=== PATIENT | female | born 1985 | race Two or more races ===

== ENCOUNTER 2017-03-14 12:03 | Emergency (ER) | payer BC ==
[~2017-03-14] VITALS: Ht 160 cm; Wt 86.2 kg
[2017-03-14 12:09] VITALS: BP 114/62
--- NOTE | 2017-03-14 12:20 | PHYS DOC ---
Past Medical History Past Medical History: No Pertinent History Past Surgical History: No Surgical History Alcohol Use: None Drug Use: None Adult General Chief Complaint Chief Complaint: EYE PROBLEMS HPI HPI Patient is a 32 year old female who presents the ED complaining of right eyelid swelling since waking up this morning. Patient states she fell sleep in her makeup yesterday and woke up with right eye swelling. Denies pain. States she thinks she had an allergic reaction to leaving her make up on. Symptoms improved with ice. Denies trauma, warmth, fever, nausea/vomiting, vision changes , eye pain, headache, chest pain or shortness of breath. Review of Systems Review of Systems Constitutional: Denies fever or chills [] Eyes: Denies change in visual acuity, redness, or eye pain [] HENT: Denies nasal congestion or sore throat [] Respiratory: Denies cough or shortness of breath [] Cardiovascular: No additional information not addressed in HPI [] GI: Denies abdominal pain, nausea, vomiting, bloody stools or diarrhea [] : Denies dysuria or hematuria [] Musculoskeletal: Denies back pain or joint pain [] Integument: Denies rash or skin lesions [] Neurologic: Denies headache, focal weakness or sensory changes [] Endocrine: Denies polyuria or polydipsia [] Allergies Allergies Allergies Coded Allergies Type Severity Reaction Last Updated Verified No Known Drug Allergies 03/14/17 No Physical Exam Physical Exam Constitutional: Well developed, well nourished, no acute distress, non-toxic appearance. [] HENT: Normocephalic, atraumatic, bilateral external ears normal, oropharynx moist, no oral exudates, nose normal. [] Eyes: PERRLA, EOMI, conjunctiva normal, no discharge. Normal visual acuity. MILD RIGHT UPPER EYELID SWELLING. NO ERYTHEMA, WARMTH OR SIGNS OF ORBITAL CELLULITIS. [] Neck: Normal range of motion, no tenderness, supple, no stridor. [] Cardiovascular:Heart rate regular rhythm, no murmur [] Lungs & Thorax: Bilateral breath sounds clear to auscultation [] Abdomen: Bowel sounds normal, soft, no tenderness, no masses, no pulsatile masses. [] Skin: Warm, dry, no erythema, no rash. [] Back: No tenderness, no CVA tenderness. [] Extremities: No tenderness, no cyanosis, no clubbing, ROM intact, no edema. [] Neurologic: Alert and oriented X 3, normal motor function, normal sensory function, no focal deficits noted. [] Psychologic: Affect normal, judgement normal, mood normal. [] Current Patient Data Vital Signs Vital Signs Date Time Temp Pulse Resp B/P (MAP) Pulse Ox O2 Delivery O2 Flow Rate FiO2 03/14/17 12:09 98.0 60 18 98 Room Air 98.0 EKG EKG [] Radiology/Procedures Radiology/Procedures [] Course & Med Decision Making Course & Med Decision Making Pertinent Labs and Imaging studies reviewed. (See chart for details) []History and exam consistent with allergic reaction. No difficulty swallowing, breathing, shortness of breath or lip swelling. Will treat with Benadryl and prednisone (patient states prednisone improved her previous allergic reaction) outpatient. Discussed symptomatic treatment. Discussed reasons to return to the ED. Patient understands and agrees with plan. Dragon Disclaimer Dragon Disclaimer This electronic medical record was generated, in whole or in part, using a voice recognition dictation system. Departure Departure Impression: Primary Impression: Allergic reaction Disposition: 01 HOME, SELF-CARE Condition: STABLE Referrals: MIRNA CLINTON MD Patient Instructions: Allergies, Generic Scripts Diphenhydramine Hcl (BENADRYL) 25 Mg Capsule 1 CAP PO Q6HRS, #10 CAP 1 Refill Prov: GREG NEVILLE 03/14/17 Methylprednisolone (MEDROL) 4 Mg Tab.ds.pk 1 PKG PO UD, #1 PKG Prov: GREG NEVILLE 03/14/17 GREG NEVILLE Mar 14, 2017 12:20
[2017-03-14] MEDS ORDERED: METH4TAB2 PO (12:22)
[2017-03-14] MEDS ORDERED: DIPH25CA58 PO (12:22)
== END 2017-03-14 12:32 | disposition home or self-care (01) ==
LOC: ER 12:03
DX: R22.0 Localized swelling, mass and lump, head (principal); H57.8 Other specified disorders of eye and adnexa; T49.8X5A Adverse effect of other topical agents, initial encounter; Y92.89 Other specified places as the place of occurrence of the external cause
CPT/HCPCS: 99283

== ENCOUNTER 2017-06-08 11:38 | Emergency (ER) | payer OTHER, BC | END 2017-06-08 12:06 | disposition home or self-care (01) | LOC: ER 11:38 | DX: S29.012A Strain of muscle and tendon of back wall of thorax, initial encounter (principal); M25.512 Pain in left shoulder; V43.52XA Car driver injured in collision with other type car in traffic accident, initial encounter; Y93.I9 Activity, other involving external motion; Y92.410 Unspecified street and highway as the place of occurrence of the external cause; Y99.8 Other external cause status | CPT/HCPCS: 99283 ==

== ENCOUNTER 2017-12-09 23:17 | Emergency (ER) | payer SELFPAY ==
[2017-12-09 23:51] LABS: URINE HCG POC HCG NEGATIVE (Negative)
[2017-12-09 23:54] LABS: BILIRUBIN,URINE NEGATIVE (NEG); CLARITY,URINE CLOUDY; COLOR,URINE YELLOW; GLUCOSE,URINE NEGATIVE (NEG); NITRITE,URINE NEGATIVE (NEG); PH,URINE 5.5; PROTEIN,URINE NEGATIVE (NEG-TRACE); UROBILINOGEN,URINE 0.2 mg/dL (0.2 mg/dL)
[2017-12-10 00:01] LABS: BACTERIA,URINE MANY /HPF (0-FEW); RBC,URINE RARE /HPF (0-2); SQUAMOUS EPITHELIAL CELL,UR MANY /LPF
[2017-12-10 00:12] LABS: ADD MAN DIFF? NO
[2017-12-10 00:17] LABS: BASO # 0.1 x10^3/uL (0.0-0.2); BASO % 2 % (0-3); EOS # 0.3 x10^3/uL (0.0-0.7); EOS % 6 % (0-3); HEMATOCRIT 31.2 % (36.0-47.0); HEMOGLOBIN 10.3 g/dL (12.0-15.5); LYMPH # 1.7 x10^3/uL (1.0-4.8); LYMPH % 37 % (24-48); MEAN CORPUSCULAR HEMOGLOBIN 25 pg (25-35); MEAN CORPUSCULAR HGB CONC 33 g/dL (31-37); MEAN CORPUSCULAR VOLUME 75 fL (79-100); MONO # 0.4 x10^3/uL (0.0-1.1); MONO % 8 % (0-9); NEUT # 2.1 x10^3uL (1.8-7.7); NEUT % 46 % (31-73); PLATELET COUNT 327 x10^3/uL (140-400); RED BLOOD COUNT 4.15 x10^6/uL (3.50-5.40); WHITE BLOOD COUNT 4.6 x10^3/uL (4.0-11.0)
[2017-12-10 00:26] LABS: ANION GAP 10 (6-14); BLOOD UREA NITROGEN 13 mg/dL (7-20); BUN/CREATININE RATIO 14 (6-20); CALCIUM 8.7 mg/dL (8.5-10.1); CARBON DIOXIDE 27 mmol/L (21-32); CHLORIDE 106 mmol/L (98-107); CREATININE 0.9 mg/dL (0.6-1.0); GFR 72.6; GLUCOSE 90 mg/dL (70-99); POTASSIUM 3.9 mmol/L (3.5-5.1); SODIUM 143 mmol/L (136-145)
[2017-12-10 00:32] LABS: ALBUMIN 3.4 g/dL (3.4-5.0); ALBUMIN/GLOBULIN RATIO 0.9 (1.0-1.7); ALK PHOS 70 U/L (46-116); ALT (SGPT) 16 U/L (14-59); AST (SGOT) 17 U/L (15-37); LIPASE 252 U/L (73-393); TOTAL BILIRUBIN 0.4 mg/dL (0.2-1.0); TOTAL PROTEIN 7.4 g/dL (6.4-8.2)
[2017-12-10] MEDS: IOHEXOL 300 MG/ML 100ML VIAL. IV (02:06)
[2017-12-10] MEDS ORDERED: CONTRAST GIVEN. MC (02:15)
[2017-12-10 04:28] LABS: ANISOCYTOSIS MOD; HYPOCHROMIA SLIGHT; PLT ESTIMATE ADEQUATE (ADEQUATE); POLYCHROMASIA SLIGHT
== END 2017-12-10 03:30 | disposition home or self-care (01) ==
LOC: ER 23:17
DX: R60.0 Localized edema (principal); M54.9 Dorsalgia, unspecified; E03.9 Hypothyroidism, unspecified
CPT/HCPCS: 36415; 74177; 80053; 81001; 81025; 83690; 84702; 85025; 87086; 99285-25; Q9967

== ENCOUNTER 2018-01-08 16:46 | Emergency (ER) | payer BC, OTHER ==
[2018-01-08] MEDS: ONDANSETRON PF 4 MG/2 ML VIAL. IV (18:03)
[2018-01-08] MEDS: IV NORMAL SALINE 1000ML BAG 1,000 ML IV (18:04)
[2018-01-08] MEDS: fentaNYL PF VIAL 100 MCG/2 ML VIAL IV (18:04)
[2018-01-08 18:08] LABS: ADD MAN DIFF? NO
[2018-01-08 18:10] LABS: BASO # 0.1 x10^3/uL (0.0-0.2); BASO % 1 % (0-3); EOS # 0.1 x10^3/uL (0.0-0.7); EOS % 1 % (0-3); LYMPH # 0.9 x10^3/uL (1.0-4.8); LYMPH % 10 % (24-48); MEAN CORPUSCULAR HEMOGLOBIN 26 pg (25-35); MEAN CORPUSCULAR HGB CONC 33 g/dL (31-37); MEAN CORPUSCULAR VOLUME 79 fL (79-100); MONO # 0.4 x10^3/uL (0.0-1.1); MONO % 5 % (0-9); NEUT # 6.9 x10^3uL (1.8-7.7); NEUT % 83 % (31-73); PLATELET COUNT 252 x10^3/uL (140-400); RED BLOOD COUNT 4.71 x10^6/uL (3.50-5.40); RED CELL DISTRIBUTION WIDTH 22.3 % (11.5-14.5); WHITE BLOOD COUNT 8.3 x10^3/uL (4.0-11.0)
[2018-01-08 18:18] LABS: ANION GAP 9 (6-14); BLOOD UREA NITROGEN 11 mg/dL (7-20); BUN/CREATININE RATIO 14 (6-20); CALCIUM 8.8 mg/dL (8.5-10.1); CARBON DIOXIDE 27 mmol/L (21-32); CHLORIDE 105 mmol/L (98-107); CREATININE 0.8 mg/dL (0.6-1.0); GFR 83.1; GLUCOSE 98 mg/dL (70-99); POTASSIUM 3.5 mmol/L (3.5-5.1); SODIUM 141 mmol/L (136-145)
[2018-01-08 18:24] LABS: ALBUMIN 3.5 g/dL (3.4-5.0); ALBUMIN/GLOBULIN RATIO 0.8 (1.0-1.7); ALK PHOS 79 U/L (46-116); ALT (SGPT) 20 U/L (14-59); AST (SGOT) 24 U/L (15-37); LIPASE 174 U/L (73-393); TOTAL BILIRUBIN 0.5 mg/dL (0.2-1.0); TOTAL PROTEIN 7.7 g/dL (6.4-8.2)
[2018-01-08 18:40] LABS: ANISOCYTOSIS MOD; PLT ESTIMATE ADEQUATE (ADEQUATE)
[2018-01-08] MEDS: HYDROcodone/APAP 5/325MG 1 TAB TABLET PO (20:46)
== END 2018-01-08 20:50 | disposition home or self-care (01) ==
LOC: ER 16:46
DX: K80.20 Calculus of gallbladder without cholecystitis without obstruction (principal); E03.9 Hypothyroidism, unspecified
CPT/HCPCS: 36415; 76705; 80053; 83690; 85025; 96374; 96375; 99285-25; J2405; J3010; J7030

== ENCOUNTER 2018-05-09 23:23 | Emergency (ER) | payer BC ==
[~2018-05-09] VITALS: Ht 165.1 cm; Wt 81.6 kg
[~2018-05-09 23:23] MED LIST: CEPH500C PO; CYCL10TA2 PO; DIPH25CA58 PO; HYDR-3164 PO; METH4TAB2 PO; METR500T PO; NAPR-683 PO; TRAM-48 PO
[2018-05-09 23:40] VITALS: BP 124/85
[2018-05-09 23:40] LABS: BILIRUBIN,URINE NEGATIVE (NEG); CLARITY,URINE CLOUDY; COLOR,URINE YELLOW; NITRITE,URINE POSITIVE (NEG); PROTEIN,URINE 100 mg/dL (NEG-TRACE)
[2018-05-09 23:48] LABS: BACTERIA,URINE MANY /HPF (0-FEW); RBC,URINE TNTC /HPF (0-2); SQUAMOUS EPITHELIAL CELL,UR OCC /LPF; WBC,URINE TNTC /HPF (0-4)
[2018-05-09] MEDS ORDERED: SULF1TAB24 PO (23:57)
[2018-05-09] MEDS ORDERED: PHEN100T82 PO (23:57)
--- NOTE | 2018-05-09 23:59 | PHYS DOC ---
Past Medical History Past Medical History: No Pertinent History, Hypothyroid Past Surgical History: No Surgical History Alcohol Use: None Drug Use: None Adult General Chief Complaint Chief Complaint: BLOOD IN URINE HPI [facility] Patient is a 33 year old F who presents with dysuria, frequency and urgency since last night. No fever, chills, n/v. Review of Systems Review of Systems Constitutional: Denies fever or chills [] Respiratory: Denies cough or shortness of breath [] Cardiovascular: No additional information not addressed in HPI [] GI: Denies abdominal pain, nausea, vomiting : Reports dysuria, frequency, urgency Musculoskeletal: Denies back pain or joint pain [] Integument: Denies rash or skin lesions [] Neurologic: Denies headache, focal weakness or sensory changes [] All other systems were reviewed and found to be within normal limits, except as documented in this note. Current Medications Current Medications Current Medications Medications (Trade) Dose Ordered Sig/Lucía Start Time Stop Time Status Last Admin Dose Admin Phenazopyridine HCl (Pyridium) 200 mg 1X ONCE 05/10/18 00:15 05/10/18 00:16 DC 05/10/18 00:15 200 MG Trimethoprim/ Sulfamethoxazole (Bactrim Ds) 1 tab 1X ONCE 05/10/18 00:15 05/10/18 00:16 DC 05/10/18 00:15 1 TAB Allergies Allergies Allergies Coded Allergies Type Severity Reaction Last Updated Verified No Known Drug Allergies 03/14/17 No Physical Exam Physical Exam Constitutional: Well developed, well nourished, no acute distress, non-toxic appearance. [] HENT: Normocephalic, atraumatic Eyes: PERRLA, EOMI, conjunctiva normal, no discharge. [] Neck: Normal range of motion, no tenderness, supple, no stridor. [] Cardiovascular:Heart rate regular rhythm, no murmur [] Lungs & Thorax: Bilateral breath sounds clear to auscultation [] Skin: Warm, dry, no erythema, no rash. [] Back: No tenderness, no CVA tenderness. [] Extremities: No tenderness, no cyanosis, no clubbing, ROM intact, no edema. [] Neurologic: Alert and oriented X 3, normal motor function, normal sensory function, no focal deficits noted. [] Psychologic: Affect normal, judgement normal, mood normal. [] Current Patient Data Vital Signs Vital Signs Date Time Temp Pulse Resp B/P (MAP) Pulse Ox O2 Delivery O2 Flow Rate FiO2 05/09/18 23:40 98.0 81 18 124/85 (98) 97 Room Air 98.0 Lab Values Laboratory Tests Test 05/09/18 23:30 05/09/18 23:34 Urine Collection Type Void Urine Color Yellow Urine Clarity Cloudy Urine pH 7.0 Urine Specific [place] 1.020 Urine Protein 100 mg/dL (NEG-TRACE) Urine Glucose (UA) Negative mg/dL (NEG) Urine Ketones (Stick) Negative mg/dL (NEG) Urine Blood Large (NEG) Urine Nitrite Positive (NEG) Urine Bilirubin Negative (NEG) Urine Urobilinogen Dipstick 1.0 mg/dL (0.2 mg/dL) Urine Leukocyte Esterase Large (NEG) Urine RBC Tntc /HPF (0-2) Urine WBC Tntc /HPF (0-4) Urine Squamous Epithelial Cells Occ /LPF Urine Bacteria Many /HPF (0-FEW) POC Urine HCG, Qualitative Hcg negative (Negative) EKG EKG [] Radiology/Procedures Radiology/Procedures [] Course & Med Decision Making Course & Med Decision Making Pertinent Labs and Imaging studies reviewed. (See chart for details) Plan: bactrim rx, pyridium rx, f/u with PCP, return precautions reviewed Chava Disclaimer Chava Disclaimer This electronic medical record was generated, in whole or in part, using a voice recognition dictation system. Departure Departure Impression: Primary Impression: UTI (urinary tract infection) Disposition: 01 HOME, SELF-CARE Condition: GOOD Referrals: NO PCP (PCP) Patient Instructions: Urinary Tract Infection Scripts Phenazopyridine Hcl (PYRIDIUM) 100 Mg Tablet 100 MG PO TID, #9 TAB Prov: ЕЛЕНА ROBLES APRN 05/09/18 Sulfamethoxazole/Trimethoprim (BACTRIM DS TABLET) 1 Each Tablet 1 TAB PO BID, #14 TAB Prov: ЕЛЕНА ROBLES APRN 05/09/18 Attending Signature Attending Signature I have participated in the care of this patient and I have reviewed and agree with all pertinent clinical information above including history, exam, and recommendations. Problem Qualifiers Primary Impression: UTI (urinary tract infection) Urinary tract infection type: acute cystitis Hematuria presence: without hematuria Qualified Codes: N30.00 - Acute cystitis without hematuria ЕЛЕНА ROBLES APRN May 09, 2018 23:59 MIRNA MIN DO May 10, 2018 01:22
[2018-05-10] MEDS ORDERED: SMZ/TMP 800/160MG TABLET. PO ONE (00:15)
[2018-05-10] MEDS ORDERED: PHENAZOPYRIDINE 200 MG TABLET. PO ONE (00:15)
== END 2018-05-10 00:16 | disposition home or self-care (01) ==
LOC: ER 23:23
DX: N30.00 Acute cystitis without hematuria (principal); E03.9 Hypothyroidism, unspecified
CPT/HCPCS: 81001; 81025; 87086; 99283

== ENCOUNTER 2018-07-30 15:51 | Emergency (ER) | payer BC ==
[~2018-07-30] VITALS: Ht 160 cm; Wt 81.6 kg
[~2018-07-30 15:51] MED LIST changes: +PHEN100T82 PO; +SULF1TAB24 PO
[2018-07-30 16:05] VITALS: BP 155/104
--- NOTE | 2018-07-30 16:29 | PHYS DOC ---
Past Medical History Past Medical History: Hypothyroid Past Surgical History: No Surgical History Alcohol Use: None Drug Use: None Adult General Chief Complaint Chief Complaint: PAIN ON URINATION HPI HPI Patient is a 33 year old female who presents with pain with urination that started yesterday. It has been getting worse over time. There is urgency as well as frequency wall urinating small amounts. No fever. No back pain. No flank pain. She has noted blood in the urine today. She had similar symptoms approximately 3 months ago with another urinary tract infection.[] Review of Systems Review of Systems Constitutional: Denies fever or chills [] Eyes: Denies change in visual acuity, redness, or eye pain [] HENT: Denies nasal congestion or sore throat [] Respiratory: Denies cough or shortness of breath [] Cardiovascular: No chest Pain or palpitations [] GI: Denies abdominal pain, nausea, vomiting, bloody stools or diarrhea [] : See history of present illness[] Musculoskeletal: Denies back pain or joint pain [] Integument: Denies rash or skin lesions [] Neurologic: Denies headache, focal weakness or sensory changes [] Endocrine: Denies polydipsia [] All other systems were reviewed and found to be within normal limits, except as documented in this note. Allergies Allergies Allergies Coded Allergies Type Severity Reaction Last Updated Verified No Known Drug Allergies 03/14/17 No Physical Exam Physical Exam Constitutional: Well developed, well nourished, no acute distress, non-toxic appearance. [] HENT: Normocephalic, atraumatic, bilateral external ears normal, oropharynx moist, no oral exudates, nose normal. [] Eyes: PERRLA, EOMI, conjunctiva normal, no discharge. [] Neck: Normal range of motion, no tenderness, supple, no stridor. [] Cardiovascular:Heart rate regular rhythm, no murmur [] Lungs & Thorax: Bilateral breath sounds clear to auscultation [] Abdomen: Bowel sounds normal, soft, no tenderness, no masses, no pulsatile masses. [] Skin: Warm, dry, no erythema, no rash. [] Back: No tenderness, no CVA tenderness. [] Extremities: No tenderness, no cyanosis, no clubbing, ROM intact, no edema. [] Neurologic: Alert and oriented X 3, normal motor function, normal sensory function, no focal deficits noted. [] Psychologic: Affect normal, judgement normal, mood normal. [] Current Patient Data Vital Signs Vital Signs Date Time Temp Pulse Resp B/P (MAP) Pulse Ox O2 Delivery O2 Flow Rate FiO2 07/30/18 16:05 98.0 155 18 155/104 (121) 100 Room Air 98.0 Lab Values Laboratory Tests Test 07/30/18 16:00 07/30/18 16:31 Urine Collection Type Unknown Urine Color Red Urine Clarity Turbid Urine pH 5.5 Urine Specific [place] 1.025 Urine Protein >=300 mg/dL (NEG-TRACE) Urine Glucose (UA) Negative mg/dL (NEG) Urine Ketones (Stick) 15 mg/dL (NEG) Urine Blood Large (NEG) Urine Nitrite Negative (NEG) Urine Bilirubin Moderate (NEG) Urine Urobilinogen Dipstick 1.0 mg/dL (0.2 mg/dL) Urine Leukocyte Esterase Large (NEG) Urine RBC Tntc /HPF (0-2) Urine WBC Tntc /HPF (0-4) Urine Squamous Epithelial Cells Few /LPF Urine Bacteria 0 /HPF (0-FEW) Urine Mucus Mod /LPF POC Urine HCG, Qualitative Hcg negative (Negative) EKG EKG [] Radiology/Procedures Radiology/Procedures [] Course & Med Decision Making Course & Med Decision Making Pertinent Labs and Imaging studies reviewed. (See chart for details) ED course: Patient arrived, was placed in bed, tolerated exam well. After return lab findings these were discussed with the patient who voiced understanding. All questions were answered. Patient was discharged in improved condition. Medical decision making: There is no evidence of pyelonephritis nor systemic toxicity. We will cover her as an outpatient for urinary tract infection.[] Dragon Disclaimer Dragon Disclaimer This electronic medical record was generated, in whole or in part, using a voice recognition dictation system. Departure Departure Impression: Primary Impression: Urinary tract infection Disposition: HOME, SELF-CARE Condition: IMPROVED Referrals: NO PCP (PCP) Patient Instructions: Urinary Tract Infection Additional Instructions: Drink plenty of fluids. Follow-up with your regular doctor in 2 days. If you do not have a regular doctor a list of local clinics will be provided for you. Turn to the ER if worsening pain or any other concerns. Scripts Phenazopyridine Hcl (PYRIDIUM) 200 Mg Tablet 200 MG PO TID for 2 Days, #6 TAB Prov: KELVIN COLLINS DO 07/30/18 Cephalexin (CEPHALEXIN) 500 Mg Tablet 1 TAB PO TID, #30 TAB Prov: KELVIN COLLINS DO 07/30/18 Problem Qualifiers Primary Impression: Urinary tract infection Urinary tract infection type: acute cystitis Hematuria presence: with hematuria Qualified Codes: N30.01 - Acute cystitis with hematuria KELVIN COLLINS DO Jul 30, 2018 16:29
[2018-07-30 16:35] LABS: BILIRUBIN,URINE MODERATE (NEG); CLARITY,URINE TURBID; COLOR,URINE RED; NITRITE,URINE NEGATIVE (NEG); PH,URINE 5.5; PROTEIN,URINE >=300 mg/dL (NEG-TRACE)
[2018-07-30 16:45] LABS: BACTERIA,URINE 0 /HPF (0-FEW); RBC,URINE TNTC /HPF (0-2); SQUAMOUS EPITHELIAL CELL,UR FEW /LPF; WBC,URINE TNTC /HPF (0-4)
[2018-07-30] MEDS ORDERED: CEPH500T PO (17:03)
[2018-07-30] MEDS ORDERED: PHEN-318 PO (17:03)
== END 2018-07-30 17:05 | disposition home or self-care (01) ==
LOC: ER 15:51
DX: N30.01 Acute cystitis with hematuria (principal); E03.9 Hypothyroidism, unspecified
CPT/HCPCS: 81001; 81025; 87086; 99283

== ENCOUNTER 2019-03-12 19:41 | Emergency (ER) | payer BC ==
[~2019-03-12] VITALS: Ht 157.5 cm; Wt 77.6 kg
[~2019-03-12 19:41] MED LIST changes: +CEPH500T PO; +PHEN-318 PO
[2019-03-12 19:42] VITALS: BP 140/75
[2019-03-12 21:08] LABS: BASO # 0.1 x10^3/uL (0.0-0.2); BASO % 1 % (0-3); EOS # 0.1 x10^3/uL (0.0-0.7); EOS % 2 % (0-3); HEMATOCRIT 37.6 % (36.0-47.0); HEMOGLOBIN 12.7 g/dL (12.0-15.5); LYMPH # 1.6 x10^3/uL (1.0-4.8); LYMPH % 26 % (24-48); MEAN CORPUSCULAR HEMOGLOBIN 28 pg (25-35); MEAN CORPUSCULAR HGB CONC 34 g/dL (31-37); MEAN CORPUSCULAR VOLUME 82 fL (79-100); MONO # 0.4 x10^3/uL (0.0-1.1); MONO % 7 % (0-9); NEUT % 64 % (31-73); PLATELET COUNT 219 x10^3/uL (140-400); RED BLOOD COUNT 4.56 x10^6/uL (3.50-5.40); RED CELL DISTRIBUTION WIDTH 15.1 % (11.5-14.5); WHITE BLOOD COUNT 6.2 x10^3/uL (4.0-11.0)
[2019-03-12 21:09] LABS: BILIRUBIN,URINE NEGATIVE (NEG); CLARITY,URINE CLEAR; COLOR,URINE YELLOW; NITRITE,URINE NEGATIVE (NEG); PROTEIN,URINE NEGATIVE (NEG-TRACE); UROBILINOGEN,URINE 0.2 mg/dL (0.2 mg/dL)
[2019-03-12 21:14] LABS: CALCIUM 8.8 mg/dL (8.5-10.1); CREATININE 0.6 mg/dL (0.6-1.0); GFR 114.4; POTASSIUM 3.6 mmol/L (3.5-5.1)
[2019-03-12 21:19] LABS: BACTERIA,URINE MODERATE /HPF (0-FEW); SQUAMOUS EPITHELIAL CELL,UR MOD /LPF
[2019-03-12 21:21] LABS: ALBUMIN 3.6 g/dL (3.4-5.0); ALBUMIN/GLOBULIN RATIO 0.9 (1.0-1.7); TOTAL BILIRUBIN 0.3 mg/dL (0.2-1.0); TOTAL PROTEIN 7.5 g/dL (6.4-8.2)
--- NOTE | 2019-03-12 22:56 | RAD ---
Transvaginal OB ultrasound HISTORY: and spotting Transvaginal sonographic examination of the was performed and multiple static images were obtained. The uterus appears homogeneous. There is no gestational sac seen. There is no free fluid. The endometrium appears images measures 2.0 cm in thickness. The ovaries appear normal normal blood flow. IMPRESSION: No seen. This could be an early or blighted ovum or miscarriage. Recommend correlation serial quantitative beta-hCG. If the continues a short-term follow-up ultrasound should be performed in order to document a live intrauterine once the patient is 6 weeks . Electronically signed by: Ulices Rivero III, MD (03/12/2019 10:53 PM) [facility]
--- NOTE | 2019-03-12 23:56 | PHYS DOC ---
Past Medical History Past Medical History: No Pertinent History, Hypothyroid (KIEL KELLEY APRN) Past Surgical History: No Surgical History (KEIL KELLEY APRN) Alcohol Use: None Drug Use: None (KIEL KELLEY APRN) Adult General Chief Complaint Chief Complaint: VAGINAL BLEEDING [facility] HPI Patient is a 34 year old female 5 para 3, 1 miscarriage who presents to the ED today complaining of vaginal bleeding in that began yesterday. Patient states she is only spotting when she wiped herself. She states she does not have any abdominal pain. Denies any nausea vomiting. She believes she is 6 weeks . She states her last menstrual cycle might have been February 28, 2019. (KIEL KELLEY APRN) Review of Systems Review of Systems Constitutional: Denies fever or chills [] Eyes: Denies change in visual acuity, redness, or eye pain [] HENT: Denies nasal congestion or sore throat [] Respiratory: Denies cough or shortness of breath [] Cardiovascular: No additional information not addressed in HPI [] GI: Reports vaginal bleeding in . Denies abdominal pain, nausea, vomiting, bloody stools or diarrhea [] : Denies dysuria or hematuria [] Musculoskeletal: Denies back pain or joint pain [] Integument: Denies rash or skin lesions [] Neurologic: Denies headache, focal weakness or sensory changes [] All other systems were reviewed and found to be within normal limits, except as documented in this note. (KIEL KELLEY APRN) Allergies Allergies Allergies Coded Allergies Type Severity Reaction Last Updated Verified No Known Drug Allergies 03/14/17 No (ONOFRE AARON MD) Physical Exam Physical Exam Constitutional: Well developed, well nourished, no acute distress, non-toxic appearance. [] HENT: Normocephalic, atraumatic, bilateral external ears normal, oropharynx moist, no oral exudates, nose normal. [] Eyes: PERRLA, EOMI, conjunctiva normal, no discharge. [] Neck: Normal range of motion, no tenderness, supple, no stridor. [] Cardiovascular:Heart rate regular rhythm, no murmur [] Lungs & Thorax: Bilateral breath sounds clear to auscultation [] Abdomen: Bowel sounds normal, soft, no tenderness, no masses, no pulsatile masses. [] Pelvic exam External pelvic appears normal, cervix incision loss, closed, no CMT, no adnexal tenderness. Trace amount of spotting/brownish discharge in the vaginal vault. Skin: Warm, dry, no erythema, no rash. [] Back: No tenderness, no CVA tenderness. [] Extremities: No tenderness, no cyanosis, no clubbing, ROM intact, no edema. [] Neurologic: Alert and oriented X 3, normal motor function, normal sensory function, no focal deficits noted. [] Psychologic: Affect normal, judgement normal, mood normal. [] (KIEL KELLEY APRN) Current Patient Data Vital Signs Vital Signs Date Time Temp Pulse Resp B/P (MAP) Pulse Ox O2 Delivery O2 Flow Rate FiO2 03/12/19 19:42 97.5 89 14 140/75 (96) 100 Room Air 97.5 (ONOFRE AARON MD) Lab Values Laboratory Tests Test 03/12/19 21:00 White Blood Count 6.2 x10^3/uL (4.0-11.0) Red Blood Count 4.56 x10^6/uL (3.50-5.40) Hemoglobin 12.7 g/dL (12.0-15.5) Hematocrit 37.6 % (36.0-47.0) Mean Corpuscular Volume 82 fL (79-100) Mean Corpuscular Hemoglobin 28 pg (25-35) Mean Corpuscular Hemoglobin Concent 34 g/dL (31-37) Red Cell Distribution Width 15.1 % (11.5-14.5) H Platelet Count 219 x10^3/uL (140-400) Neutrophils (%) (Auto) 64 % (31-73) Lymphocytes (%) (Auto) 26 % (24-48) Monocytes (%) (Auto) 7 % (0-9) Eosinophils (%) (Auto) 2 % (0-3) Basophils (%) (Auto) 1 % (0-3) Neutrophils # (Auto) 4.0 x10^3/uL (1.8-7.7) Lymphocytes # (Auto) 1.6 x10^3/uL (1.0-4.8) Monocytes # (Auto) 0.4 x10^3/uL (0.0-1.1) Eosinophils # (Auto) 0.1 x10^3/uL (0.0-0.7) Basophils # (Auto) 0.1 x10^3/uL (0.0-0.2) Urine Collection Type Unknown Urine Color Yellow Urine Clarity Clear Urine pH 6.0 Urine Specific [place] 1.015 Urine Protein Negative mg/dL (NEG-TRACE) Urine Glucose (UA) Negative mg/dL (NEG) Urine Ketones (Stick) Negative mg/dL (NEG) Urine Blood Negative (NEG) Urine Nitrite Negative (NEG) Urine Bilirubin Negative (NEG) Urine Urobilinogen Dipstick 0.2 mg/dL (0.2 mg/dL) Urine Leukocyte Esterase Negative (NEG) Urine RBC 1-2 /HPF (0-2) Urine WBC 1-4 /HPF (0-4) Urine Squamous Epithelial Cells Mod /LPF Urine Bacteria Moderate /HPF (0-FEW) POC Urine HCG, Qualitative Hcg positive (Negative) Maternal Serum HCG Beta Subunit 127 mIU/mL (0-5) H Sodium Level 142 mmol/L (136-145) Potassium Level 3.6 mmol/L (3.5-5.1) Chloride Level 106 mmol/L (98-107) Carbon Dioxide Level 28 mmol/L (21-32) Anion Gap 8 (6-14) Blood Urea Nitrogen 10 mg/dL (7-20) Creatinine 0.6 mg/dL (0.6-1.0) Estimated GFR (Cockcroft-Gault) 114.4 BUN/Creatinine Ratio 17 (6-20) Glucose Level 106 mg/dL (70-99) H Calcium Level 8.8 mg/dL (8.5-10.1) Total Bilirubin 0.3 mg/dL (0.2-1.0) Aspartate Amino Transferase (AST) 23 U/L (15-37) Alanine Aminotransferase (ALT) 32 U/L (14-59) Alkaline Phosphatase 81 U/L (46-116) Total Protein 7.5 g/dL (6.4-8.2) Albumin 3.6 g/dL (3.4-5.0) Albumin/Globulin Ratio 0.9 (1.0-1.7) L Laboratory Tests 03/12/19 21:00 Laboratory Tests 03/12/19 21:00 Microbiology 03/12/19 Wet Prep - Final, Complete (ONOFRE AARON MD) EKG EKG [] (KIEL KELLEY APRN) Radiology/Procedures Radiology/Procedures []PROCEDURE: OB TRANSVAG Transvaginal OB ultrasound HISTORY: and spotting Transvaginal sonographic examination of the was performed and multiple static images were obtained. The uterus appears homogeneous. There is no gestational sac seen. There is no free fluid. The endometrium appears images measures 2.0 cm in thickness. The ovaries appear normal normal blood flow. IMPRESSION: No seen. This could be an early or blighted ovum or miscarriage. Recommend correlation serial quantitative beta-hCG. If the continues a short-term follow-up ultrasound should be performed in order to document a live intrauterine once the patient is 6 weeks . Electronically signed by: Katie Lei III, MD (03/12/2019 10:53 PM) [facility] DICTATED and SIGNED BY: KATIE LEI III, MD DATE: 03/12/19 2253 (KIEL KELLEY APRN) Course & Med Decision Making Course & Med Decision Making Pertinent Labs and Imaging studies reviewed. (See chart for details) This is a 34-year-old female patient 5 para 3, 1 miscarriage who presents to the ED today complaining of vaginal bleeding in that began yesterday. On physical exam patient is spotting. Positive urine hCG, beta-hCG 127. Blood group O+. CBC with a normal WBC, normal hemoglobin and hematocrit. Urine analysis is negative for leukocytes, negative for nitrates, noted for bacteria, urine is grossly contaminated as well. OB ultrasound no IUP this could be an early or blighted ovum or miscarriage. Recommend correlation serial quantitative beta-hCG. If the continues a short-term follow-up ultrasound should be performed in order to document a live intrauterine once the patient is 6 weeks . (KIEL KELLEY APRN) Dragon Disclaimer Dragon Disclaimer This electronic medical record was generated, in whole or in part, using a voice recognition dictation system. (KIEL KELLEY APRN) Departure Departure Impression: Primary Impression: Threatened miscarriage in early Disposition: HOME, SELF-CARE Condition: STABLE Referrals: KATY RITTER MD (PCP) Follow up in 2 days Patient Instructions: Threatened Miscarriage, [id number] Additional Instructions: You were evaluated for vaginal bleeding in . Please maintain pelvic rest, this includes avoiding sexual intercourse, no strenuous activities, this should be done until you see the [employer] MACHINE MACHINIST. Try and make sure you see your doctor in the next 2 days for blood work and follow-up. Come back to the ED at any po int symptoms worsen. Attending Signature I have participated in the care of this patient and I have reviewed and agree with all pertinent clinical information above including history, exam, and recommendations. (ONOFRE AARON MD) KIEL KELLEY APRN Mar 12, 2019 23:56 ONOFRE AARON MD Mar 14, 2019 02:54
[2019-03-14 17:09] LABS: GC PROBE Negative (Negative)
== END 2019-03-13 00:08 | disposition home or self-care (01) ==
LOC: ER 19:41
DX: O20.0 Threatened abortion (principal); O99.281 Endocrine, nutritional and metabolic diseases complicating pregnancy, first trimester; E03.9 Hypothyroidism, unspecified; Z3A.01 Less than 8 weeks gestation of pregnancy
CPT/HCPCS: 76817; 80053; 81001; 81025; 84702; 85025; 86850; 86900; 86901; 87086; 87491; 87591; 99285; Q0111; 36415

== ENCOUNTER 2020-07-14 22:32 | Inpatient (IN) | payer BC, OTHER ==
[~2020-07-14] VITALS: Ht 157.5 cm; Wt 81.6 kg
[2020-07-14 23:58] LABS: BASO # 0.1 x10^3/uL (0.0-0.2); BASO % 1 % (0-3); EOS % 0 % (0-3); HEMATOCRIT 39.2 % (36.0-47.0); HEMOGLOBIN 13.2 g/dL (12.0-15.5); LYMPH # 0.5 x10^3/uL (1.0-4.8); LYMPH % 5 % (24-48); MEAN CORPUSCULAR HEMOGLOBIN 28 pg (25-35); MEAN CORPUSCULAR HGB CONC 34 g/dL (31-37); MEAN CORPUSCULAR VOLUME 83 fL (79-100); MONO # 0.5 x10^3/uL (0.0-1.1); MONO % 4 % (0-9); NEUT # 10.1 x10^3/uL (1.8-7.7); NEUT % 91 % (31-73); PLATELET COUNT 172 x10^3/uL (140-400); RED BLOOD COUNT 4.73 x10^6/uL (3.50-5.40); RED CELL DISTRIBUTION WIDTH 14.3 % (11.5-14.5); WHITE BLOOD COUNT 11.1 x10^3/uL (4.0-11.0)
[2020-07-15] VITALS (7 sets, daily range): BP systolic 113–144; BP diastolic 55–75
[2020-07-15] LABS: BILIRUBIN,URINE NEGATIVE (NEG); CLARITY,URINE CLEAR; COLOR,URINE YELLOW; NITRITE,URINE NEGATIVE (NEG); PROTEIN,URINE NEGATIVE (NEG-TRACE)
[2020-07-15 00:08] LABS: PROTHROMBIN TIME PATIENT 13.3 SEC (11.7-14.0)
[2020-07-15 00:10] LABS: CALCIUM 9.6 mg/dL (8.5-10.1); CREATININE 0.7 mg/dL (0.6-1.0); GFR 95.2; POTASSIUM 3.5 mmol/L (3.5-5.1)
[2020-07-15 00:16] LABS: BACTERIA,URINE FEW /HPF (0-FEW)
--- NOTE | 2020-07-15 00:16 | ED.ADGEN ---
Past Medical History Past Medical History: Hypothyroid Past Surgical History: No Surgical History Smoking Status: Never Smoker Alcohol Use: None Drug Use: None General Adult EDM: Chief Complaint: SHORTNESS OF BREATH HPI: HPI: Patient is a 35 year old female coming in for rash on her left hip that she describes as burning. Subjective fever and chills, diffuse headache, muscle aches, patient states she has had the symptoms today. But was getting worse about 2 hours ago. Patient states she felt hot and went to take a shower to cool off and took some ibuprofen. Patient also noticed a rash spreading from her left upper buttock to her left hip. Patient discharged she noted a black spider but is unsure if she got bit. She also had an excoriated lesion in her midline low back gluteal cleft that she said yesterday was a pimple-like lesion that she picks the top off of it. Patient states she otherwise has been well and only has a history of hypothyroidism and is taking levothyroxine. She did not take her temperature at home. Review of Systems: Review of Systems: All other systems within normal limits except for as noted in the HPI Current Medications: Current Medications Medications (Trade) Dose Ordered Sig/Lucía Start Time Stop Time Status Last Admin Dose Admin Clindamycin Phosphate 50 ml @ 100 mls/hr 1X ONCE 07/15/20 00:30 07/15/20 00:59 DC 07/15/20 02:41 100 MLS/HR Fentanyl Citrate (Fentanyl 2ml Vial) 75 mcg 1X ONCE 07/15/20 00:30 07/15/20 00:31 DC 07/15/20 00:55 75 MCG Ketorolac Tromethamine (Toradol 15mg Vial) 15 mg 1X ONCE 07/15/20 02:00 07/15/20 02:01 DC 07/15/20 01:29 15 MG Piperacillin Sod/ Tazobactam Sod 3.375 gm/Sodium Chloride 50 ml @ 100 mls/hr 1X ONCE 07/15/20 00:30 07/15/20 00:59 DC 07/15/20 02:11 100 MLS/HR Sodium Chloride 1,000 ml @ 1,000 mls/hr 1X ONCE 07/15/20 02:15 07/15/20 03:15 DC 07/15/20 02:11 1,000 MLS/HR Vancomycin HCl (Vanco Per Pharmacy) 1 each PRN DAILY PRN 07/14/20 23:45 07/15/20 04:10 1 EACH Vancomycin HCl 2 gm/Sodium Chloride 500 ml @ 250 mls/hr 1X ONCE 07/15/20 00:30 07/15/20 02:29 DC 07/15/20 00:01 250 MLS/HR Allergies: Allergies: Allergies Coded Allergies Type Severity Reaction Last Updated Verified No Known Drug Allergies 03/14/17 No Physical Exam: PE: Constitutional: Well developed, well nourished, ill-appearing, diaphoretic. [] HENT: Normocephalic, atraumatic, bilateral external ears normal, nose normal. [] Eyes: PERRLA, conjunctiva normal, no discharge. [] Neck: No rigidity, supple, no stridor. [] Cardiovascular: Regular rate and rhythm, brisk cap refill [] Lungs & Thorax: Non labored symmetric respirations, no tachypnea or respiratory distress [] Abdomen: Soft, nondistended. Skin: Warm,, blanching indurated rash on left hip and low back, no crepitus. 1 cm circular excoriated lesion in the mid low back. [] Back: Unremarkable Extremities: No deformities, range of motion grossly intact, no lower extremity edema [] Neurologic: Alert and oriented X 3, no focal deficits noted. [] Psychologic: Affect normal, judgement normal, mood normal. [] Current Patient Data: Labs: Laboratory Tests Test 07/14/20 22:45 07/14/20 22:56 07/14/20 23:45 Urine Collection Type Unknown Urine Color Yellow Urine Clarity Clear Urine pH 7.0 (<5.0-8.0) Urine Specific [place] 1.025 (1.000-1.030) Urine Protein Negative mg/dL (NEG-TRACE) Urine Glucose (UA) Negative mg/dL (NEG) Urine Ketones (Stick) Trace mg/dL (NEG) Urine Blood Negative (NEG) Urine Nitrite Negative (NEG) Urine Bilirubin Negative (NEG) Urine Urobilinogen Dipstick 1.0 mg/dL (0.2 mg/dL) Urine Leukocyte Esterase Small (NEG) Urine RBC 1-2 /HPF (0-2) Urine WBC 1-4 /HPF (0-4) Urine Squamous Epithelial Cells Mod /LPF Urine Bacteria Few /HPF (0-FEW) Urine Mucus Mod /LPF White Blood Count 11.1 x10^3/uL (4.0-11.0) H Red Blood Count 4.73 x10^6/uL (3.50-5.40) Hemoglobin 13.2 g/dL (12.0-15.5) Hematocrit 39.2 % (36.0-47.0) Mean Corpuscular Volume 83 fL (79-100) Mean Corpuscular Hemoglobin 28 pg (25-35) Mean Corpuscular Hemoglobin Concent 34 g/dL (31-37) Red Cell Distribution Width 14.3 % (11.5-14.5) Platelet Count 172 x10^3/uL (140-400) Neutrophils (%) (Auto) 91 % (31-73) H Lymphocytes (%) (Auto) 5 % (24-48) L Monocytes (%) (Auto) 4 % (0-9) Eosinophils (%) (Auto) 0 % (0-3) Basophils (%) (Auto) 1 % (0-3) Neutrophils # (Auto) 10.1 x10^3/uL (1.8-7.7) H Lymphocytes # (Auto) 0.5 x10^3/uL (1.0-4.8) L Monocytes # (Auto) 0.5 x10^3/uL (0.0-1.1) Eosinophils # (Auto) 0.0 x10^3/uL (0.0-0.7) Basophils # (Auto) 0.1 x10^3/uL (0.0-0.2) Segmented Neutrophils % 81 % (35-66) H Band Neutrophils % 7 % (0-9) Lymphocytes % 8 % (24-48) L Monocytes % 4 % (0-10) Toxic Granulation Slight Platelet Estimate Adequate (ADEQUATE) Prothrombin Time 13.3 SEC (11.7-14.0) Prothrombin Time INR 1.1 (0.8-1.1) Sodium Level 135 mmol/L (136-145) L Potassium Level 3.5 mmol/L (3.5-5.1) Chloride Level 99 mmol/L (98-107) Carbon Dioxide Level 26 mmol/L (21-32) Anion Gap 10 (6-14) Blood Urea Nitrogen 9 mg/dL (7-20) Creatinine 0.7 mg/dL (0.6-1.0) Estimated GFR (Cockcroft-Gault) 95.2 BUN/Creatinine Ratio 13 (6-20) Glucose Level 116 mg/dL (70-99) H Lactic Acid Level 1.3 mmol/L (0.4-2.0) Calcium Level 9.6 mg/dL (8.5-10.1) Magnesium Level 2.0 mg/dL (1.8-2.4) Total Bilirubin 1.4 mg/dL (0.2-1.0) H Aspartate Amino Transferase (AST) 19 U/L (15-37) Alanine Aminotransferase (ALT) 29 U/L (14-59) Alkaline Phosphatase 77 U/L (46-116) Creatine Kinase 63 U/L (26-192) Myoglobin 34 ng/mL (9-82) C-Reactive Protein, Quantitative 52.0 mg/L (0-3.3) H Total Protein 8.2 g/dL (6.4-8.2) Albumin 3.9 g/dL (3.4-5.0) Albumin/Globulin Ratio 0.9 (1.0-1.7) L Thyroid Stimulating Hormone (TSH) 0.310 uIU/mL (0.358-3.74) L Urine Test Negative (NEG) Laboratory Tests 07/14/20 22:56 Laboratory Tests 07/14/20 22:56 Vital Signs: Vital Signs Date Time Temp Pulse Resp B/P (MAP) Pulse Ox O2 Delivery O2 Flow Rate FiO2 07/15/20 03:39 104 18 116/63 (80) 97 Room Air 07/15/20 01:24 99.8 99.8 EKG: EKG: [] Heart Score: Risk Factors: Risk Factors: DM, Current or recent (<one month) smoker, HTN, HLP, family history of CAD, obesity. Risk Scores: Score 0 - 3: 2.5% MACE over next 6 weeks - Discharge Home Score 4 - 6: 20.3% MACE over next 6 weeks - Admit for Clinical Observation Score 7 - 10: 72.7% MACE over next 6 weeks - Early Invasive Strategies Radiology/Procedures: Radiology/Procedures: AP chest x-ray HISTORY: Fever. FINDINGS: Heart size normal. Mediastinal silhouette is normal. Small calcified granuloma left lung base. No pneumothorax, pulmonary opacities or pleural effusions. Bones are unremarkable. IMPRESSION: No acute process. AP pelvis x-ray HISTORY: Cellulitis. FINDINGS: Intrauterine device. No fracture. No dislocation. No lytic or sclerotic bone lesion or bone demineralization of the pelvis to localize a potential site of osteomyelitis. Mild bone spurring at the pubic symphysis. Soft tissues unremarkable. IMPRESSION: No acute osseous injury. CT pelvis without contrast PQRS statement: CT scans at this facility use dose reduction including either automated exposure control, iterative reconstructions, and /or weight based radiation dosing via mA and kV modification when appropriate to reduce radiation dose to as low as reasonably achievable. HISTORY: Spreading cellulitis. FINDINGS: No fracture. No dislocation. 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 Linear soft tissue density likely scarring at the lower abdominal wall perhaps from prior surgery. Some of this could represent mild subcutaneous reticulation and edema. There may also be some induration and subcutaneous edema at the labia. There is mild soft tissue edema at the left groin and subcentimeter lymph nodes likely reactive. No fluid collection. No soft tissue emphysema to suggest necrotizing fasciitis. No deep pelvic soft ti ssue edema or fluid. Retroverted uterus with intrauterine device. Bladder, ovaries, rectum unremarkable. IMPRESSION: 1. Mild soft tissue edema of the lower anterior abdominal wall, left groin and of the labia. No soft tissue emphysema to suggest necrotizing fasciitis. No abscess evident. 2. No acute osseous injury.[] Course & Med Decision Making: Course & Med Decision Making Pertinent Labs and Imaging studies reviewed. (See chart for details) no bulllae or crepitus. LRINEC score 5, low risk but not no risk. rash marked and monitored closely in ED, to ensure not nec fasc. [] Dragon Disclaimer: Dragvivek Disclaimer: This electronic medical record was generated, in whole or in part, using a voice recognition dictation system. Departure Departure Impression: Primary Impression: Cellulitis Disposition: ADMITTED INPT THIS HOSP Condition: STABLE Referrals: NO PCP (PCP) NÉSTOR NUNEZ MD Jul 15, 2020 00:16
[2020-07-15 00:23] LABS: ALBUMIN 3.9 g/dL (3.4-5.0); ALBUMIN/GLOBULIN RATIO 0.9 (1.0-1.7); TOTAL BILIRUBIN 1.4 mg/dL (0.2-1.0); TOTAL PROTEIN 8.2 g/dL (6.4-8.2)
[2020-07-15 00:25] LABS: U PREG PATIENT NEGATIVE (NEG)
[2020-07-15] MEDS ORDERED: IV NORMAL SALINE 1000ML BAG 1,000 ML IV ONE ×2 (00:30→02:15)
[2020-07-15] MEDS ORDERED: CLINDAMYCIN 600MG PREMIX 50 ML IV ONE (00:30)
[2020-07-15] MEDS ORDERED: PIPERACILLIN/TAZOBACTAM 3.375 GM in IV NORMAL SALINE 50ML 50 ML IV ONE (00:30)
[2020-07-15] MEDS ORDERED: VANCOMYCIN 2 GM in IV NORMAL SALINE 500ML BAG 500 ML IV ONE (00:30)
[2020-07-15] MEDS ORDERED: fentaNYL PF VIAL 100 MCG/2 ML VIAL IVP ONE (00:30)
[2020-07-15 00:31] LABS: % BANDS 7 % (0-9); % LYMPHS 8 % (24-48); % MONOS 4 % (0-10); % SEGS 81 % (35-66); PLT ESTIMATE ADEQUATE (ADEQUATE); TOXIC GRANULATION SLIGHT
--- NOTE | 2020-07-15 00:48 | RAD ---
AP chest x-ray HISTORY: Fever. FINDINGS: Heart size normal. Mediastinal silhouette is normal. Small calcified granuloma left lung ba se. No pneumothorax, pulmonary opacities or pleural effusions. Bones are unremarkable. IMPRESSION: No acute process. AP pelvis x-ray HISTORY: Cellulitis. FINDINGS: Intrauterine device. No fracture. No dislocation. No lytic or sclerotic bone lesion or bone demineralization of the pelvis to localize a potential site of osteomyelitis. Mild bone spurring at the pubic symphysis. Soft tissues unremarkable. IMPRESSION: No acute osseous injury. Electronically signed by: José Antonio Mcnulty MD (07/15/2020 12:45 AM) [facility]
[2020-07-15] MEDS ORDERED: KETOROLAC 15 MG/ML VIAL. IVP ONE (02:00)
--- NOTE | 2020-07-15 03:53 | RAD ---
CT pelvis without contrast PQRS statement: CT scans at this facility use dose reduction including either automated exposure cont rol, iterative reconstructions, and /or weight based radiation dosing via mA and kV modification when appropriate to reduce radiation dose to as low as reasonably achievable. HISTORY: Spreading cellulitis. FINDINGS: No fracture. No dislocation. 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 Linear soft tissue density likely scarring at the lower abdominal wall perhaps from prior surgery. S ome of this could represent mild subcutaneous reticulation and edema. There may also be some indurati on and subcutaneous edema at the labia. There is mild soft tissue edema at the left groin and subcent imeter lymph nodes likely reactive. No fluid collection. No soft tissue emphysema to suggest necrotiz ing fasciitis. No deep pelvic soft tissue edema or fluid. Retroverted uterus with intrauterine device . Bladder, ovaries, rectum unremarkable. IMPRESSION: 1. Mild soft tissue edema of the lower anterior abdominal wall, left groin and of the labia. No soft tissue emphysema to suggest necrotizing fasciitis. No abscess evident. 2. No acute osseous injury. Electronically signed by: José Antonio Mcnulty MD (07/15/2020 3:51 AM) [facility]
[2020-07-15] MEDS ORDERED: ONDANSETRON PF 4 MG/2 ML VIAL. IV PRN (04:00)
[2020-07-15] MEDS ORDERED: ACETAMINOPHEN 325 MG TABLET. PO PRN ×2 (04:00→07:30)
[2020-07-15] MEDS: VANCOMYCIN PER PHARMACY MC PRN (04:10)
--- NOTE | 2020-07-15 04:11 | NUR ---
Pharmacy Vancomycin Dosing Note S:Consulted to monitor and dose vancomycin started 07/15/20. O:ANDERSON IBRAHIM is a 35 year old F with Cellulitis . Height: 5 feet, 3 inches Weight: 81.8 kg Blanket Body Weight: 52.40 Adjusted Body Weight: 64.16 Dosing Weight: Actual Other Antibiotics: LABS: Last BUN: 9 Last Creatinine: 0.7 Creatinine Clearance: 113 mL/min Last WBC: 11.1 Last Procalcitonin: Tmax (past 24 hours): Microbiology: I/O: Drug Levels: Last level: on at Last dose given 07/15/20 at 0000 Vancomycin Dosing: Loading Dose: 2000 mg x1 Dosing Weight: Actual Target Trough: 10-20 A: Based on: WT AND CRCL P: 1. Begin Vancomycin 1250 mg IV q8h 2. Follow up Trough level on 07/15/20 at 2330 3. Pharmacy will continue to monitor, follow and adjust therapy as needed. RADHA REID RPH, 07/15/20 0411 Signed: 07/15/20 at 0412 by RADHA REID RPH PHA
--- NOTE | 2020-07-15 04:20 | NUR ---
The patient, ANDERSON IBRAHIM, 35 y/o, F admitted by ROSEMARIE MEEKS MD, was given written information regarding hospital policies, unit procedures and contact persons. Valuables were checked and . Addendum: 07/15/20 at 0637 by MICHELE ADAN RN The patient, ANDERSON IBRAHIM, 35 y/o, F admitted by ROSEMARIE MEEKS MD, was given written information regarding hospital policies, unit procedures and contact persons. RN received report from Stacy BRADLEY in the ED at 0358, patient was then transported from the ED to room 444 at 0420 via [facility]. RN performed a head to toe assessment at that time, VSS, Temp was 99.6, and pain rated a 10/10. Bed is in lowest locked position and call light is within reach. Valuables were checked and left in the room with the patient. RN will continue to monitor patient closely.
[2020-07-15] MEDS: fentaNYL PF VIAL 100 MCG/2 ML VIAL IV PRN (04:33)
[2020-07-15] MEDS: IV NORMAL SALINE 1000ML BAG 1,000 ML IV SCH ×2 (05:38→16:44)
[2020-07-15] MEDS ORDERED: LEVO125T5 PO (06:44)
--- NOTE | 2020-07-15 07:02 | NUR ---
Reassessments from ED cleared on EMAR
--- NOTE | 2020-07-15 07:23 | PDOC1 ---
History and Physical Date of Admission Date of Admission DATE: 07/15/20 TIME: 07:05 Identification/Chief Complaint Chief Complaint Rash Source Source: Patient History of Present Illness History of Present Illness Patient is a 35-year-old female with past medical history of hypothyroidism, who presents to the ER with complaints of left hip rash first noted yesterday morning. She reports associated headache, subjective fever, and chills. She has taken ibuprofen for her symptoms without improvement. She does report seeing black spider around her house, and but denies ever seeing spiders on her person. She denies any drainage. Upon evaluation in the ER she had a low-grade fever and slightly tachycardic. WBC 11.1, CRP 52, TSH 0.310. She received broad-spectrum antibiotics and IV fluids. Will admit patient for further medical management. Past Medical History Past Medical History Hypothyroidism Past Surgical History Past Surgical History: No pertinent history Family History Family History Denies significant family history Social History Smoke: No ALCOHOL: none Drugs: None Current Medications Current Medications Current Medications Sodium Chloride 1,000 ml @ 1,000 mls/hr 1X ONCE IV Last administered on 07/15/20at 00:55; Start 07/15/20 at 00:30; Stop 07/15/20 at 01:29; Status DC Fentanyl Citrate (Fentanyl 2ml Vial) 75 mcg 1X ONCE IVP Last administered on 07/15/20at 00:55; Start 07/15/20 at 00:30; Stop 07/15/20 at 00:31; Status DC Piperacillin Sod/ Tazobactam Sod 3.375 gm/Sodium Chloride 50 ml @ 100 mls/hr 1X ONCE IV Last administered on 07/15/20at 02:11; Start 07/15/20 at 00:30; Stop 07/15/20 at 00:59; Status DC Clindamycin Phosphate 50 ml @ 100 mls/hr 1X ONCE IV Last administered on 07/15/20at 02:41; Start 07/15/20 at 00:30; Stop 07/15/20 at 00:59; Status DC Vancomycin HCl 2 gm/Sodium Chloride 500 ml @ 250 mls/hr 1X ONCE IV Last administered on 07/15/20at 00:01; Start 07/15/20 at 00:30; Stop 07/15/20 at 02:29; Status DC Vancomycin HCl (Vanco Per Pharmacy) 1 each PRN DAILY PRN MC SEE COMMENTS Last administered on 07/15/20at 04:10; Start 07/14/20 at 23:45 Ketorolac Tromethamine (Toradol 15mg Vial) 15 mg 1X ONCE IVP Last administered on 07/15/20at 01:29; Start 07/15/20 at 02:00; Stop 07/15/20 at 02:01; Status DC Sodium Chloride 1,000 ml @ 1,000 mls/hr 1X ONCE IV Last administered on 07/15/20at 02:11; Start 07/15/20 at 02:15; Stop 07/15/20 at 03:15; Status DC Ondansetron HCl (Zofran) 4 mg PRN Q8HRS PRN IV NAUSEA/VOMITING 1ST CHOICE; Start 07/15/20 at 04:00; Stop 07/16/20 at 03:59 Fentanyl Citrate (Fentanyl 2ml Vial) 50 mcg PRN Q1HR PRN IV SEVERE PAIN 7-10 Last administered on 07/15/20at 04:33; Start 07/15/20 at 04:00; Stop 07/16/20 at 03:59 Sodium Chloride 1,000 ml @ 100 mls/hr Q10H IV Last administered on 07/15/20at 05:38; Start 07/15/20 at 04:30; Stop 07/16/20 at 04:29 Acetaminophen (Tylenol) 650 mg PRN Q4HRS PRN PO FEVER > 100.3'F; Start 07/15/20 at 04:00; Stop 07/16/20 at 03:59 Vancomycin HCl 1.25 gm/Sodium Chloride 250 ml @ 167 mls/hr Q8H IV ; Start 07/15/20 at 08:00 Vancomycin HCl (Vancomycin Trough Level) 1 each 1X ONCE MC ; Start 07/15/20 at 23:30; Stop 07/15/20 at 23:31 Active Scripts Active Pyridium (Phenazopyridine Hcl) 200 Mg Tablet 200 Mg PO TID 2 Days Cephalexin 500 Mg Tablet 1 Tab PO TID Pyridium (Phenazopyridine Hcl) 100 Mg Tablet 100 Mg PO TID Bactrim Ds Tablet (Sulfamethoxazole/Trimethoprim) 1 Each Tablet 1 Tab PO BID [place] 5-325 Tablet (Acetaminophen/Hydrocodone Bitart) 1 Each Tablet 1 Tab PO PRN Q6HRS PRN Cephalexin 500 Mg Capsule 1 Cap PO QID Naprosyn (Naproxen) 500 Mg Tablet 500 Mg PO BID Cyclobenzaprine Hcl 10 Mg Tablet 10 Mg PO TID Benadryl (Diphenhydramine Hcl) 25 Mg Capsule 1 Cap PO Q6HRS Medrol (Methylprednisolone) 4 Mg Tab.ds.pk 1 Pkg PO UD [place] 5-325 Tablet (Acetaminophen/Hydrocodone Bitart) 1 Each Tablet 1 Tab PO Q4- 6HRS PRN Flagyl (Metronidazole) 500 Mg Tablet 1 Tab PO BID Ultram (Tramadol Hcl) 50 Mg Tablet 50 Mg PO Q6H PRN Reported Levothyroxine Sodium 125 Mcg Tablet 1 Tab PO DAILY Allergies Allergies: Coded Allergies: No Known Drug Allergies (Unverified , 03/14/17) ROS Review of System GENERAL: No history of weight change, weakness or fevers. SKIN: No bruising, hair changes or rashes. EYES: No blurred, double or loss of vision. NOSE AND THROAT: No history of nosebleeds, hoarseness or sore throat. HEART: Denies chest pain, denies palpitations. LUNGS: Denies cough, hemoptysis, wheezing or shortness of breath. GASTROINTESTINAL: Denies nausea, vomiting, abdominal pain. GENITOURINARY: Denies dysuria, frequency, urgency, hematuria. NEUROLOGIC: Denies history of numbness, tingling, tremor or weakness. PSYCHIATRIC: Denies anxiety, denies depression. ENDOCRINE: No history of heat or cold intolerance, polyuria or polydipsia. EXTREMITIES: Denies muscle weakness, joint pain, pain on walking or stiffness. SKIN: Pruritic rash to left hip Physical Exam Physical Exam General: Alert, Oriented X3, Cooperative, No acute distress HEENT: PERRLA, EOMI Lungs: Clear to auscultation, Normal air movement Heart: RRR, no murmurs Cardiovascular: S1, S2 Abdomen: Normal bowel sounds, Soft, No tenderness Extremities: No clubbing, No cyanosis Skin: Cellulitis to the left hip and left lower back. Erythema extends asymmet rically ~10 cm. Associated soft tissue edema/phlegmon. ~1 cm circumferential lesion to left lower back. No crepitus. Neuro: Normal speech, Normal tone, Sensation intact Psych/Mental Status: Mental status NL, Mood NL Vitals Vitals Vital Signs Date Time Temp Pulse Resp B/P (MAP) Pulse Ox O2 Delivery O2 Flow Rate FiO2 07/15/20 04:33 Room Air 07/15/20 04:10 99.6 99 18 128/61 (83) 99 99.6 Labs Labs Laboratory Tests Test 07/14/20 22:45 07/14/20 22:56 07/14/20 23:45 Urine Collection Type Unknown Urine Color Yellow Urine Clarity Clear Urine pH 7.0 (<5.0-8.0) Urine Specific [place] 1.025 (1.000-1.030) Urine Protein Negative mg/dL (NEG-TRACE) Urine Glucose (UA) Negative mg/dL (NEG) Urine Ketones (Stick) Trace mg/dL (NEG) Urine Blood Negative (NEG) Urine Nitrite Negative (NEG) Urine Bilirubin Negative (NEG) Urine Urobilinogen Dipstick 1.0 mg/dL (0.2 mg/dL) Urine Leukocyte Esterase Small (NEG) Urine RBC 1-2 /HPF (0-2) Urine WBC 1-4 /HPF (0-4) Urine Squamous Epithelial Cells Mod /LPF Urine Bacteria Few /HPF (0-FEW) Urine Mucus Mod /LPF White Blood Count 11.1 x10^3/uL (4.0-11.0) Red Blood Count 4.73 x10^6/uL (3.50-5.40) Hemoglobin 13.2 g/dL (12.0-15.5) Hematocrit 39.2 % (36.0-47.0) Mean Corpuscular Volume 83 fL (79-100) Mean Corpuscular Hemoglobin 28 pg (25-35) Mean Corpuscular Hemoglobin Concent 34 g/dL (31-37) Red Cell Distribution Width 14.3 % (11.5-14.5) Platelet Count 172 x10^3/uL (140-400) Neutrophils (%) (Auto) 91 % (31-73) Lymphocytes (%) (Auto) 5 % (24-48) Monocytes (%) (Auto) 4 % (0-9) Eosinophils (%) (Auto) 0 % (0-3) Basophils (%) (Auto) 1 % (0-3) Neutrophils # (Auto) 10.1 x10^3/uL (1.8-7.7) Lymphocytes # (Auto) 0.5 x10^3/uL (1.0-4.8) Monocytes # (Auto) 0.5 x10^3/uL (0.0-1.1) Eosinophils # (Auto) 0.0 x10^3/uL (0.0-0.7) Basophils # (Auto) 0.1 x10^3/uL (0.0-0.2) Segmented Neutrophils % 81 % (35-66) Band Neutrophils % 7 % (0-9) Lymphocytes % 8 % (24-48) Monocytes % 4 % (0-10) Toxic Granulation Slight Platelet Estimate Adequate (ADEQUATE) Prothrombin Time 13.3 SEC (11.7-14.0) Prothromb Time International Ratio 1.1 (0.8-1.1) Sodium Level 135 mmol/L (136-145) Potassium Level 3.5 mmol/L (3.5-5.1) Chloride Level 99 mmol/L (98-107) Carbon Dioxide Level 26 mmol/L (21-32) Anion Gap 10 (6-14) Blood Urea Nitrogen 9 mg/dL (7-20) Creatinine 0.7 mg/dL (0.6-1.0) Estimated GFR (Cockcroft-Gault) 95.2 BUN/Creatinine Ratio 13 (6-20) Glucose Level 116 mg/dL (70-99) Lactic Acid Level 1.3 mmol/L (0.4-2.0) Calcium Level 9.6 mg/dL (8.5-10.1) Magnesium Level 2.0 mg/dL (1.8-2.4) Total Bilirubin 1.4 mg/dL (0.2-1.0) Aspartate Amino Transf (AST/SGOT) 19 U/L (15-37) Alanine Aminotransferase (ALT/SGPT) 29 U/L (14-59) Alkaline Phosphatase 77 U/L (46-116) Creatine Kinase 63 U/L (26-192) Myoglobin 34 ng/mL (9-82) C-Reactive Protein, Quantitative 52.0 mg/L (0-3.3) Total Protein 8.2 g/dL (6.4-8.2) Albumin 3.9 g/dL (3.4-5.0) Albumin/Globulin Ratio 0.9 (1.0-1.7) Thyroid Stimulating Hormone (TSH) 0.310 uIU/mL (0.358-3.74) Urine Test Negative (NEG) Laboratory Tests Test 07/14/20 22:45 07/14/20 22:56 07/14/20 23:45 Urine Collection Type Unknown Urine Color Yellow Urine Clarity Clear Urine pH 7.0 (<5.0-8.0) Urine Specific [place] 1.025 (1.000-1.030) Urine Protein Negative mg/dL (NEG-TRACE) Urine Glucose (UA) Negative mg/dL (NEG) Urine Ketones (Stick) Trace mg/dL (NEG) Urine Blood Negative (NEG) Urine Nitrite Negative (NEG) Urine Bilirubin Negative (NEG) Urine Urobilinogen Dipstick 1.0 mg/dL (0.2 mg/dL) Urine Leukocyte Esterase Small (NEG) Urine RBC 1-2 /HPF (0-2) Urine WBC 1-4 /HPF (0-4) Urine Squamous Epithelial Cells Mod /LPF Urine Bacteria Few /HPF (0-FEW) Urine Mucus Mod /LPF White Blood Count 11.1 x10^3/uL (4.0-11.0) Red Blood Count 4.73 x10^6/uL (3.50-5.40) Hemoglobin 13.2 g/dL (12.0-15.5) Hematocrit 39.2 % (36.0-47.0) Mean Corpuscular Volume 83 fL (79-100) Mean Corpuscular Hemoglobin 28 pg (25-35) Mean Corpuscular Hemoglobin Concent 34 g/dL (31-37) Red Cell Distribution Width 14.3 % (11.5-14.5) Platelet Count 172 x10^3/uL (140-400) Neutrophils (%) (Auto) 91 % (31-73) Lymphocytes (%) (Auto) 5 % (24-48) Monocytes (%) (Auto) 4 % (0-9) Eosinophils (%) (Auto) 0 % (0-3) Basophils (%) (Auto) 1 % (0-3) Neutrophils # (Auto) 10.1 x10^3/uL (1.8-7.7) Lymphocytes # (Auto) 0.5 x10^3/uL (1.0-4.8) Monocytes # (Auto) 0.5 x10^3/uL (0.0-1.1) Eosinophils # (Auto) 0.0 x10^3/uL (0.0-0.7) Basophils # (Auto) 0.1 x10^3/uL (0.0-0.2) Segmented Neutrophils % 81 % (35-66) Band Neutrophils % 7 % (0-9) Lymphocytes % 8 % (24-48) Monocytes % 4 % (0-10) Toxic Granulation Slight Platelet Estimate Adequate (ADEQUATE) Prothrombin Time 13.3 SEC (11.7-14.0) Prothromb Time International Ratio 1.1 (0.8-1.1) Sodium Level 135 mmol/L (136-145) Potassium Level 3.5 mmol/L (3.5-5.1) Chloride Level 99 mmol/L (98-107) Carbon Dioxide Level 26 mmol/L (21-32) Anion Gap 10 (6-14) Blood Urea Nitrogen 9 mg/dL (7-20) Creatinine 0.7 mg/dL (0.6-1.0) Estimated GFR (Cockcroft-Gault) 95.2 BUN/Creatinine Ratio 13 (6-20) Glucose Level 116 mg/dL (70-99) Lactic Acid Level 1.3 mmol/L (0.4-2.0) Calcium Level 9.6 mg/dL (8.5-10.1) Magnesium Level 2.0 mg/dL (1.8-2.4) Total Bilirubin 1.4 mg/dL (0.2-1.0) Aspartate Amino Transf (AST/SGOT) 19 U/L (15-37) Alanine Aminotransferase (ALT/SGPT) 29 U/L (14-59) Alkaline Phosphatase 77 U/L (46-116) Creatine Kinase 63 U/L (26-192) Myoglobin 34 ng/mL (9-82) C-Reactive Protein, Quantitative 52.0 mg/L (0-3.3) Total Protein 8.2 g/dL (6.4-8.2) Albumin 3.9 g/dL (3.4-5.0) Albumin/Globulin Ratio 0.9 (1.0-1.7) Thyroid Stimulating Hormone (TSH) 0.310 uIU/mL (0.358-3.74) Urine Test Negative (NEG) Images Images CT pelvis without contrast PQRS statement: CT scans at this facility use dose reduction including either automated exposure control, iterative reconstructions, and /or weight based radiation dosing via mA and kV modification when appropriate to reduce radiation dose to as low as reasonably achievable. HISTORY: Spreading cellulitis. FINDINGS: No fracture. No dislocation. 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 Linear soft tissue density likely scarring at the lower abdominal wall perhaps from prior surgery. Some of this could represent mild subcutaneous reticulation and edema. There may also be some induration and subcutaneous edema at the labia. There is mild soft tissue edema at the left groin and subcentimeter lymph nodes likely reactive. No fluid collection. No soft tissue emphysema to suggest necrotizing fasciitis. No deep pelvic soft tissue edema or fluid. Retroverted uterus with intrauterine device. Bladder, ovaries, rectum unremarkable. IMPRESSION: 1. Mild soft tissue edema of the lower anterior abdominal wall, left groin and of the labia. No soft tissue emphysema to suggest necrotizing fasciitis. No abscess evident. 2. No acute osseous injury. AP chest x-ray HISTORY: Fever. FINDINGS: Heart size normal. Mediastinal silhouette is normal. Small calcified granuloma left lung base. No pneumothorax, pulmonary opacities or pleural effusions. Bones are unremarkable. IMPRESSION: No acute process. AP pelvis x-ray HISTORY: Cellulitis. FINDINGS: Intrauterine device. No fracture. No dislocation. No lytic or sclerotic bone lesion or bone demineralization of the pelvis to localize a potential site of osteomyelitis. Mild bone spurring at the pubic symphysis. Soft tissues unremarkable. IMPRESSION: No acute osseous injury. AP chest x-ray HISTORY: Fever. FINDINGS: Heart size normal. Mediastinal silhouette is normal. Small calcified granuloma left lung base. No pneumothorax, pulmonary opacities or pleural effusions. Bones are unremarkable. IMPRESSION: No acute process. AP pelvis x-ray HISTORY: Cellulitis. FINDINGS: Intrauterine device. No fracture. No dislocation. No lytic or sclerotic bone lesion or bone demineralization of the pelvis to localize a potential site of osteomyelitis. Mild bone spurring at the pubic symphysis. Soft tissues unremarkable. IMPRESSION: No acute osseous injury. VTE Prophylaxis Ordered VTE Prophylaxis Devices: Yes VTE Pharmacological Prophylaxi: No Assessment/Plan Assessment/Plan Cellulitis Hypothyroidism Plan: Patient seen vancomycin and Zosyn in the ED. Will continue broad-spectrum antibiotic coverage. Skin has been marked with surgical pen in ED, and erythema does not extend beyond the boundaries. Some soft tissue edema/phlegmon noted on physical exam. No crepitus on physical exam. No evidence of necrotizing fasciitis or abscess seen on CT abdomen pelvis. Slight hyperthyroidism. Will resume home levothyroxine at decreased dose; recommend recheck 6-8 weeks. FEN - Regular diet PPX - SCDs FULL CODE Dispo - inpatient for above Justifications for Admission Other Justification STEVAN VELASQUEZ MD Jul 15, 2020 07:22
[2020-07-15] MEDS ORDERED: CALCIUM CARBONATE 500 MG TAB.CHEW PO PRN (07:30)
[2020-07-15] MEDS ORDERED: diphenhydrAMINE HCL 25 MG CAPSULE PO SCH (07:30)
[2020-07-15] MEDS ORDERED: BISACODYL 10 MG SUPP.RECT. PR PRN (07:30)
[2020-07-15] MEDS ORDERED: ZOLPIDEM 5 MG TABLET. PO PRN (07:30)
[2020-07-15] MEDS ORDERED: MAGNESIUM HYDROXIDE 2,400 MG/30 ML ORAL.SUSP. PO PRN (07:30)
[2020-07-15] MEDS ORDERED: traMADol 50 MG TABLET PO SCH (07:30)
[2020-07-15] MEDS ORDERED: IBUPROFEN 400 MG TABLET. PO PRN (07:30)
[2020-07-15] MEDS ORDERED: MAG HYDROX/ALUMINUM HYD/SIMETH 30 ML ORAL.SUSP PO PRN (07:30)
[2020-07-15] MEDS ORDERED: ONDANSETRON PF 4 MG/2 ML VIAL. IVP PRN (07:30)
[2020-07-15] MEDS: VANCOMYCIN 1.25 GM in IV NORMAL SALINE 250ML 250 ML IV SCH ×2 (08:25→16:43)
[2020-07-15] MEDS: LACTOBACILLUS RHAMNOSUS GG 1 CAPSULE. PO SCH ×2 (08:25→20:25)
[2020-07-15] MEDS: cefTRIAXone IV Push 1 GM VIAL. IVP SCH (08:25)
--- NOTE | 2020-07-15 09:29 | NUR ---
SW following. Discussed with RN, pt from home, room air, regular diet. Pt on IV abx, wound care following, ID consulted. SW will continue to follow.
--- NOTE | 2020-07-15 09:44 | PDOC ---
Infectious Disease Note Vital Sign Vital Signs Vital Signs Date Time Temp Pulse Resp B/P (MAP) Pulse Ox O2 Delivery O2 Flow Rate FiO2 07/15/20 07:00 99.5 84 16 122/66 (84) 95 Room Air 99.5 Labs Lab Laboratory Tests Test 07/14/20 22:45 07/14/20 22:56 07/14/20 23:45 Urine Collection Type Unknown Urine Color Yellow Urine Clarity Clear Urine pH 7.0 (<5.0-8.0) Urine Specific [place] 1.025 (1.000-1.030) Urine Protein Negative mg/dL (NEG-TRACE) Urine Glucose (UA) Negative mg/dL (NEG) Urine Ketones (Stick) Trace mg/dL (NEG) Urine Blood Negative (NEG) Urine Nitrite Negative (NEG) Urine Bilirubin Negative (NEG) Urine Urobilinogen Dipstick 1.0 mg/dL (0.2 mg/dL) Urine Leukocyte Esterase Small (NEG) Urine RBC 1-2 /HPF (0-2) Urine WBC 1-4 /HPF (0-4) Urine Squamous Epithelial Cells Mod /LPF Urine Bacteria Few /HPF (0-FEW) Urine Mucus Mod /LPF White Blood Count 11.1 x10^3/uL (4.0-11.0) Red Blood Count 4.73 x10^6/uL (3.50-5.40) Hemoglobin 13.2 g/dL (12.0-15.5) Hematocrit 39.2 % (36.0-47.0) Mean Corpuscular Volume 83 fL (79-100) Mean Corpuscular Hemoglobin 28 pg (25-35) Mean Corpuscular Hemoglobin Concent 34 g/dL (31-37) Red Cell Distribution Width 14.3 % (11.5-14.5) Platelet Count 172 x10^3/uL (140-400) Neutrophils (%) (Auto) 91 % (31-73) Lymphocytes (%) (Auto) 5 % (24-48) Monocytes (%) (Auto) 4 % (0-9) Eosinophils (%) (Auto) 0 % (0-3) Basophils (%) (Auto) 1 % (0-3) Neutrophils # (Auto) 10.1 x10^3/uL (1.8-7.7) Lymphocytes # (Auto) 0.5 x10^3/uL (1.0-4.8) Monocytes # (Auto) 0.5 x10^3/uL (0.0-1.1) Eosinophils # (Auto) 0.0 x10^3/uL (0.0-0.7) Basophils # (Auto) 0.1 x10^3/uL (0.0-0.2) Segmented Neutrophils % 81 % (35-66) Band Neutrophils % 7 % (0-9) Lymphocytes % 8 % (24-48) Monocytes % 4 % (0-10) Toxic Granulation Slight Platelet Estimate Adequate (ADEQUATE) Prothrombin Time 13.3 SEC (11.7-14.0) Prothromb Time International Ratio 1.1 (0.8-1.1) Sodium Level 135 mmol/L (136-145) Potassium Level 3.5 mmol/L (3.5-5.1) Chloride Level 99 mmol/L (98-107) Carbon Dioxide Level 26 mmol/L (21-32) Anion Gap 10 (6-14) Blood Urea Nitrogen 9 mg/dL (7-20) Creatinine 0.7 mg/dL (0.6-1.0) Estimated GFR (Cockcroft-Gault) 95.2 BUN/Creatinine Ratio 13 (6-20) Glucose Level 116 mg/dL (70-99) Lactic Acid Level 1.3 mmol/L (0.4-2.0) Calcium Level 9.6 mg/dL (8.5-10.1) Magnesium Level 2.0 mg/dL (1.8-2.4) Total Bilirubin 1.4 mg/dL (0.2-1.0) Aspartate Amino Transf (AST/SGOT) 19 U/L (15-37) Alanine Aminotransferase (ALT/SGPT) 29 U/L (14-59) Alkaline Phosphatase 77 U/L (46-116) Creatine Kinase 63 U/L (26-192) Myoglobin 34 ng/mL (9-82) C-Reactive Protein, Quantitative 52.0 mg/L (0-3.3) Total Protein 8.2 g/dL (6.4-8.2) Albumin 3.9 g/dL (3.4-5.0) Albumin/Globulin Ratio 0.9 (1.0-1.7) Thyroid Stimulating Hormone (TSH) 0.310 uIU/mL (0.358-3.74) Urine Test Negative (NEG) Objective Assessment pt seen, consult dictated Plan Plan of Care / DARRYN WALKER MD Jul 15, 2020 09:44
--- NOTE | 2020-07-15 10:09 | CONS ---
DATE OF CONSULTATION: 07/15/2020 REQUESTING PHYSICIAN: Dr. Caballero. REASON FOR CONSULTATION: Left gluteal cellulitis. HISTORY OF PRESENT ILLNESS: This is a 35-year-old female who has history of hypothyroidism and has had plastic surgery done to remove fat from the gluteal area and abdomen, who presented with 1-day history of pain and redness that she noticed on the left hip and flank area. The patient had low-grade fever here. The patient denies any nausea, vomiting, diarrhea, chest pain, shortness of breath, abdominal pain, urinary symptoms. The patient denies ever having COVID or vaccine. The patient was noted to have white count of 11.1 and the patient was started on vancomycin and Rocephin. She received also one dose of clindamycin and one dose of Zosyn. PAST MEDICAL HISTORY: Positive for hypothyroidism and tummy tuck surgery done in [place] once and in [place] here and maybe liposuction from the gluteal area. SOCIAL HISTORY: Negative for smoking, alcohol, or illicit drug use. ALLERGIES: No known drug allergies. CURRENT MEDICATIONS: Reviewed. REVIEW OF SYSTEMS: As per HPI, all other systems reviewed are negative. PHYSICAL EXAMINATION: GENERAL: Alert, oriented female, not in distress. VITAL SIGNS: Stable with a T-max of 99.6, pulse 84, respirations 16, blood pressure 122/66. HEENT: NAD. NECK: Supple, no JVP, no lymphadenopathy. LUNGS: Clear. HEART: S1, S2 regular. ABDOMEN: Soft and nontender. No organomegaly. EXTREMITIES: No edema or cyanosis. SKIN: Unremarkable except left gluteal area. She has got redness into the dermatomal distribution, although there is no blister. There is one area of scab into the lower lumbar area onto the left side. NEUROLOGIC: The patient is alert, awake and appropriate. No focal neurologic deficit. LABORATORY DATA: White count is 11.1, BUN and creatinine is normal. Urinalysis unremarkable. test is negative. Pelvic CT done, which was unremarkable. Chest x-ray was unremarkable. IMPRESSION: 1. Left gluteal and flank cellulitis. This could be slightly atypical presentation of herpes zoster. There are no blisters at this point, this is dermatomal distribution. 2. Low-grade fever. 3. Leukocytosis. 4. Hypothyroidism. 5. Liposuction done in that area. RECOMMENDATIONS: Recommend continue vancomycin and ceftriaxone. Add valacyclovir. Supportive care and we will continue to follow. Thank you very much, Dr. Caballero for giving me the opportunity to participate in this patient's care. DARRYN WALKER MD DR: EARL/suzanna JOB#: [id number] / [id number]
[2020-07-15] MEDS ORDERED: diphenhydrAMINE HCL 25 MG CAPSULE PO PRN (10:15)
[2020-07-15] MEDS: LEVOTHYROXINE 112 MCG TABLET PO SCH (11:12)
[2020-07-15] MEDS: valACYclovir 500 MG TABLET. PO SCH ×2 (11:13→20:25)
[2020-07-15] MEDS: traMADol 50 MG TABLET PO PRN ×2 (13:53→20:26)
[2020-07-16] MEDS: IV NORMAL SALINE 1000ML BAG 1,000 ML IV SCH (00:30)
[2020-07-16 00:59] LABS: VANC TR 13.4 mcg/mL (10.0-20.0)
[2020-07-16] MEDS: fentaNYL PF VIAL 100 MCG/2 ML VIAL IV PRN (01:22)
[2020-07-16] MEDS: VANCOMYCIN 1.25 GM in IV NORMAL SALINE 250ML 250 ML IV SCH ×4 (01:25→23:43)
[2020-07-16 03:00] VITALS: BP 124/69
[2020-07-16] MEDS: LEVOTHYROXINE 112 MCG TABLET PO SCH (05:43)
[2020-07-16] MEDS: traMADol 50 MG TABLET PO PRN ×2 (05:48→17:39)
--- NOTE | 2020-07-16 06:26 | NUR ---
Pt. is a little alarmed that her left hip has gotten more swollen throughout the night and is more painful and "really warm." RN assessed site and it does seem to be spreading a little more. Pt. seems to be concerned that it was a bug bite and intended to show me but there doesn't seem to be any "bite" marisela. RN provided some education on signs and symptoms of cellulitis and explained that warmth and redness are a part of the infection process and that antibiotics will help alleviate that. Will continue to monitor.
[2020-07-16 07:00] VITALS: BP 134/73
[2020-07-16 07:16] LABS: BASO % 1 % (0-3); EOS # 0.1 x10^3/uL (0.0-0.7); EOS % 1 % (0-3); HEMATOCRIT 36.8 % (36.0-47.0); HEMOGLOBIN 12.2 g/dL (12.0-15.5); LYMPH # 0.8 x10^3/uL (1.0-4.8); LYMPH % 15 % (24-48); MEAN CORPUSCULAR HEMOGLOBIN 27 pg (25-35); MEAN CORPUSCULAR HGB CONC 33 g/dL (31-37); MEAN CORPUSCULAR VOLUME 83 fL (79-100); MONO # 0.4 x10^3/uL (0.0-1.1); MONO % 7 % (0-9); NEUT # 4.1 x10^3/uL (1.8-7.7); NEUT % 77 % (31-73); PLATELET COUNT 158 x10^3/uL (140-400); RED BLOOD COUNT 4.43 x10^6/uL (3.50-5.40); RED CELL DISTRIBUTION WIDTH 14.5 % (11.5-14.5); WHITE BLOOD COUNT 5.3 x10^3/uL (4.0-11.0)
[2020-07-16 07:42] LABS: CALCIUM 8.1 mg/dL (8.5-10.1); CREATININE 0.7 mg/dL (0.6-1.0); GFR 95.2; POTASSIUM 3.2 mmol/L (3.5-5.1)
--- NOTE | 2020-07-16 08:21 | PDOC ---
Infectious Disease Note Subjective Subjective pt is feeling about the same ROS ROS no n/v/d/sob/fever Vital Sign Vital Signs Vital Signs Date Time Temp Pulse Resp B/P (MAP) Pulse Ox O2 Delivery O2 Flow Rate FiO2 07/16/20 06:57 Room Air 07/16/20 03:00 99.4 80 16 124/69 (87) 97 99.4 Physical Exam PHYSICAL EXAM GENERAL: Alert, oriented female, not in distress. VITAL SIGNS: Stable HEENT: NAD. NECK: Supple, no JVP, no lymphadenopathy. LUNGS: Clear. HEART: S1, S2 regular. ABDOMEN: Soft and nontender. No organomegaly. EXTREMITIES: No edema or cyanosis. SKIN: Unremarkable except left gluteal area. She has got redness into the dermatomal distribution, although there is no blister. There is one area of scab into the lower lumbar area onto the left side. NEUROLOGIC: The patient is alert, awake and appropriate. No focal neurologic deficit. Labs Lab Laboratory Tests Test 07/15/20 23:59 07/16/20 06:50 07/16/20 07:52 Vancomycin Level Trough 13.4 mcg/mL (10.0-20.0) Vancomycin Last Dose Date Vancomycin Last Dose Time White Blood Count 5.3 x10^3/uL (4.0-11.0) Red Blood Count 4.43 x10^6/uL (3.50-5.40) Hemoglobin 12.2 g/dL (12.0-15.5) Hematocrit 36.8 % (36.0-47.0) Mean Corpuscular Volume 83 fL (79-100) Mean Corpuscular Hemoglobin 27 pg (25-35) Mean Corpuscular Hemoglobin Concent 33 g/dL (31-37) Red Cell Distribution Width 14.5 % (11.5-14.5) Platelet Count 158 x10^3/uL (140-400) Neutrophils (%) (Auto) 77 % (31-73) Lymphocytes (%) (Auto) 15 % (24-48) Monocytes (%) (Auto) 7 % (0-9) Eosinophils (%) (Auto) 1 % (0-3) Basophils (%) (Auto) 1 % (0-3) Neutrophils # (Auto) 4.1 x10^3/uL (1.8-7.7) Lymphocytes # (Auto) 0.8 x10^3/uL (1.0-4.8) Monocytes # (Auto) 0.4 x10^3/uL (0.0-1.1) Eosinophils # (Auto) 0.1 x10^3/uL (0.0-0.7) Basophils # (Auto) 0.0 x10^3/uL (0.0-0.2) Sodium Level 138 mmol/L (136-145) Potassium Level 3.2 mmol/L (3.5-5.1) Chloride Level 105 mmol/L (98-107) Carbon Dioxide Level 24 mmol/L (21-32) Anion Gap 9 (6-14) Blood Urea Nitrogen 2 mg/dL (7-20) Creatinine 0.7 mg/dL (0.6-1.0) Estimated GFR (Cockcroft-Gault) 95.2 Glucose Level 92 mg/dL (70-99) Calcium Level 8.1 mg/dL (8.5-10.1) Glucose (Fingerstick) 75 mg/dL (70-99) Micro Microbiology 07/15/20 Urine Culture - Final, Complete Objective Assessment IMPRESSION: 1. Left gluteal and flank cellulitis. This could be slightly atypical presentation of herpes zoster. There are no blisters at this point, this is dermatomal distribution. 2. Low-grade fever. 3. Leukocytosis. 4. Hypothyroidism. 5. Liposuction done in that area. Plan Plan of Care cont antibiotics and antiviral for now DARRYN WALKER MD Jul 16, 2020 08:21
[2020-07-16] MEDS: cefTRIAXone IV Push 1 GM VIAL. IVP SCH (09:13)
[2020-07-16] MEDS: LACTOBACILLUS RHAMNOSUS GG 1 CAPSULE. PO SCH ×2 (09:13→21:06)
[2020-07-16] MEDS: valACYclovir 500 MG TABLET. PO SCH ×2 (09:14→21:10)
--- NOTE | 2020-07-16 09:19 | NUR ---
SW following. Discussed with RN, pt from home with , room air, regular diet. Pt on IV abx - unsure if this will be continuous churn buttermaker at this point. SW will continue to follow.
[2020-07-16 11:00] VITALS: BP 123/64
--- NOTE | 2020-07-16 12:11 | PDOC ---
[employer] PROGRESS NOTE Date of Service DOS: DATE: 07/16/20 TIME: 12:01 Chief Complaint Chief Complaint Cellulitis Hypothyroidism Plan: Patient seen vancomycin and Zosyn in the ED. Will continue broad-spectrum antibiotic coverage. Skin has been marked with surgical pen in ED, and erythema does not extend beyond the boundaries. Some soft tissue edema/phlegmon noted on physical exam. No crepitus on physical exam. No evidence of necrotizing fasciitis or abscess seen on CT abdomen pelvis. Slight hyperthyroidism. Will resume home levothyroxine at decreased dose; recommend recheck 6-8 weeks. History of Present Illness History of Present Illness Patient is a 35-year-old female with past medical history of hypothyroidism, who presents to the ER with complaints of left hip rash first noted yesterday morning. She reports associated headache, subjective fever, and chills. She has taken ibuprofen for her symptoms without improvement. She does report seeing black spider around her house, and but denies ever seeing spiders on her person. She denies any drainage. Upon evaluation in the ER she had a low-grade fever and slightly tachycardic. WBC 11.1, CRP 52, TSH 0.310. She received broad-spectrum antibiotics and IV fluids. Will admit patient for further medical management. 07/16: Patient seen and evaluated. Cellulitis appears transferred beyond anterior border that was marked on admission. She also notes associated pain. CT abd/pel obtained on admission did not show fluid collection. Will reevaluate with ultrasound. Continue with IV antibiotics and antiviral. Vitals/I&O Vitals/I&O: Vital Signs Date Time Temp Pulse Resp B/P (MAP) Pulse Ox O2 Delivery O2 Flow Rate FiO2 07/16/20 11:00 97.8 89 16 123/64 (83) 96 Room Air 97.8 l I & O 07/15/20 07/15/20 07/16/20 15:00 23:00 07:00 Intake Total 0 ml 150 ml Balance 0 ml 150 ml Physical Exam Physical Exam: GENERAL: Alert, oriented female, not in distress. VITAL SIGNS: Stable HEENT: NAD. NECK: Supple, no JVP, no lymphadenopathy. LUNGS: Clear. HEART: S1, S2 regular. ABDOMEN: Soft and nontender. No organomegaly. EXTREMITIES: No edema or cyanosis. SKIN: Unremarkable except left gluteal area. She has got redness into the dermatomal distribution, although there is no blister. There is one area of scab into the lower lumbar area onto the left side. NEUROLOGIC: The patient is alert, awake and appropriate. No focal neurologic deficit. General: Alert, Oriented X3, No acute distress Heart: Regular rate Lungs: Clear Abdomen: Soft, No tenderness Extremities: No clubbing, No cyanosis Skin: Other (Cellulitis to the left hip and left lower back. Erythema extends asymmetrically ~10 cm. Associated soft tissue edema/phlegmon. ~1 cm circumferential lesion to left lower back. No crepitus.) Labs Labs: Laboratory Tests Test 07/15/20 23:59 07/16/20 06:50 07/16/20 07:52 Vancomycin Level Trough 13.4 mcg/mL (10.0-20.0) Vancomycin Last Dose Date Vancomycin Last Dose Time White Blood Count 5.3 x10^3/uL (4.0-11.0) Red Blood Count 4.43 x10^6/uL (3.50-5.40) Hemoglobin 12.2 g/dL (12.0-15.5) Hematocrit 36.8 % (36.0-47.0) Mean Corpuscular Volume 83 fL (79-100) Mean Corpuscular Hemoglobin 27 pg (25-35) Mean Corpuscular Hemoglobin Concent 33 g/dL (31-37) Red Cell Distribution Width 14.5 % (11.5-14.5) Platelet Count 158 x10^3/uL (140-400) Neutrophils (%) (Auto) 77 % (31-73) Lymphocytes (%) (Auto) 15 % (24-48) Monocytes (%) (Auto) 7 % (0-9) Eosinophils (%) (Auto) 1 % (0-3) Basophils (%) (Auto) 1 % (0-3) Neutrophils # (Auto) 4.1 x10^3/uL (1.8-7.7) Lymphocytes # (Auto) 0.8 x10^3/uL (1.0-4.8) Monocytes # (Auto) 0.4 x10^3/uL (0.0-1.1) Eosinophils # (Auto) 0.1 x10^3/uL (0.0-0.7) Basophils # (Auto) 0.0 x10^3/uL (0.0-0.2) Sodium Level 138 mmol/L (136-145) Potassium Level 3.2 mmol/L (3.5-5.1) Chloride Level 105 mmol/L (98-107) Carbon Dioxide Level 24 mmol/L (21-32) Anion Gap 9 (6-14) Blood Urea Nitrogen 2 mg/dL (7-20) Creatinine 0.7 mg/dL (0.6-1.0) Estimated GFR (Cockcroft-Gault) 95.2 Glucose Level 92 mg/dL (70-99) Calcium Level 8.1 mg/dL (8.5-10.1) Glucose (Fingerstick) 75 mg/dL (70-99) Comment Review of Relevant I have reviewed the following items marisela (where applicable) has been applied. Medications: Current Medications Medications (Trade) Dose Ordered Sig/Lucía Route PRN Reason Start Time Stop Time Status Last Admin Dose Admin Vancomycin HCl (Vancomycin Trough Level) 1 each 1X ONCE 07/15/20 23:30 07/15/20 23:31 DC 07/15/20 23:30 Justifications for Admission Other Justification Cellulitis STEVAN VELASQUEZ MD Jul 16, 2020 12:11
--- NOTE | 2020-07-16 14:04 | RAD ---
EXAMINATION: US EXT NON VASC LEFT 07/16/2020 1:15 PM INDICATION: Evaluate for fluid collection left anterior hip TECHNIQUE: Limited Angulo scale and color Doppler ultrasound images of the left anterior hip were obtai carmen. COMPARISON: CT pelvis to 08/29/2020. FINDINGS: There is subcutaneous edema in the area of concern in the left anterior hip. No fluid collection or m ass. IMPRESSION: Subcutaneous edema. No fluid collection in the area of concern. Electronically signed by: Olya Payne MD (07/16/2020 2:01 PM) [id number]
[2020-07-16 15:00] VITALS: BP 116/68
[2020-07-16 19:35] VITALS: BP 102/65
[2020-07-16] MEDS: VANCOMYCIN PER PHARMACY MC PRN ×2 (21:24→21:30)
--- NOTE | 2020-07-16 21:31 | NUR ---
Pharmacy Vancomycin Dosing Note S: Consulted to monitor and dose vancomycin started 07/15/20. O: ANDERSON IBRAHIM is a 35 year old F with Cellulitis, . Other Antibiotics: CEFTRIAXONE 1GM IV Q24H LABS: Last BUN: 2 Last Creatinine: 0.7 Creatinine Clearance: 111 mL/min Last WBC: 5.3 Last Procalcitonin: Tmax (past 24 hours): 99.8 Microbiology: I/O: 2600/- 2 150/- 3VOIDS Drug Levels: Last Trough level: 13.4 on 07/15/20 at 2359 Last dose given 07/15/20 at 1600 Vancomycin Dosing: Dosing Weight: Actual Target Trough: 10-20 A: Based on: Trough, Actual Wt and CrCl P: 1. 07/16 Continue Vancomycin 1250 mg IV q8h 2. Follow up Trough level in 5 to 7 days as needed 3. Pharmacy will continue to monitor, follow and adjust therapy as needed. JOVANA MORRIS RPH, 07/16/202130 Signed: 07/16/20 at 213 by JOVANA MORRIS RPH PHA
[2020-07-16 23:23] VITALS: BP 114/59
[2020-07-17 03:22] VITALS: BP 115/68
[2020-07-17 06:07] LABS: BASO % 1 % (0-3); EOS # 0.2 x10^3/uL (0.0-0.7); EOS % 3 % (0-3); HEMATOCRIT 38.6 % (36.0-47.0); HEMOGLOBIN 12.6 g/dL (12.0-15.5); LYMPH # 1.1 x10^3/uL (1.0-4.8); LYMPH % 20 % (24-48); MEAN CORPUSCULAR HEMOGLOBIN 27 pg (25-35); MEAN CORPUSCULAR HGB CONC 33 g/dL (31-37); MEAN CORPUSCULAR VOLUME 84 fL (79-100); MONO # 0.4 x10^3/uL (0.0-1.1); MONO % 8 % (0-9); NEUT # 3.7 x10^3/uL (1.8-7.7); NEUT % 68 % (31-73); PLATELET COUNT 168 x10^3/uL (140-400); RED BLOOD COUNT 4.62 x10^6/uL (3.50-5.40); RED CELL DISTRIBUTION WIDTH 14.4 % (11.5-14.5); WHITE BLOOD COUNT 5.5 x10^3/uL (4.0-11.0)
[2020-07-17] MEDS: LEVOTHYROXINE 112 MCG TABLET PO SCH (06:17)
[2020-07-17 07:00] VITALS: BP 102/47
--- NOTE | 2020-07-17 07:56 | PDOC ---
Infectious Disease Note Subjective Subjective pt is feeling much better ROS ROS No nausea vomiting diarrhea or pain Vital Sign Vital Signs Vital Signs Date Time Temp Pulse Resp B/P (MAP) Pulse Ox O2 Delivery O2 Flow Rate FiO2 07/17/20 07:41 Room Air 07/17/20 03:22 98.9 75 18 115/68 (84) 97 98.9 Physical Exam PHYSICAL EXAM GENERAL: Alert, oriented female, not in distress. VITAL SIGNS: Stable HEENT: NAD. NECK: Supple, no JVP, no lymphadenopathy. LUNGS: Clear. HEART: S1, S2 regular. ABDOMEN: Soft and nontender. No organomegaly. EXTREMITIES: No edema or cyanosis. SKIN: Unremarkable except left gluteal area. Redness has improved to almost gone NEUROLOGIC: The patient is alert, awake and appropriate. No focal neurologic deficit. Labs Lab Laboratory Tests Test 07/17/20 05:00 White Blood Count 5.5 x10^3/uL (4.0-11.0) Red Blood Count 4.62 x10^6/uL (3.50-5.40) Hemoglobin 12.6 g/dL (12.0-15.5) Hematocrit 38.6 % (36.0-47.0) Mean Corpuscular Volume 84 fL (79-100) Mean Corpuscular Hemoglobin 27 pg (25-35) Mean Corpuscular Hemoglobin Concent 33 g/dL (31-37) Red Cell Distribution Width 14.4 % (11.5-14.5) Platelet Count 168 x10^3/uL (140-400) Neutrophils (%) (Auto) 68 % (31-73) Lymphocytes (%) (Auto) 20 % (24-48) Monocytes (%) (Auto) 8 % (0-9) Eosinophils (%) (Auto) 3 % (0-3) Basophils (%) (Auto) 1 % (0-3) Neutrophils # (Auto) 3.7 x10^3/uL (1.8-7.7) Lymphocytes # (Auto) 1.1 x10^3/uL (1.0-4.8) Monocytes # (Auto) 0.4 x10^3/uL (0.0-1.1) Eosinophils # (Auto) 0.2 x10^3/uL (0.0-0.7) Basophils # (Auto) 0.0 x10^3/uL (0.0-0.2) C-Reactive Protein, Quantitative 73.4 mg/L (0-3.3) Micro Microbiology 07/15/20 Urine Culture - Final, Complete Objective Assessment IMPRESSION: 1. Left gluteal and flank cellulitis. This could be slightly atypical presentation of herpes zoster. There are no blisters at this point, this is dermatomal distribution. 2. Low-grade fever. 3. Leukocytosis. 4. Hypothyroidism. 5. Liposuction done in that area. Plan Plan of Care pt can be d/c ed on po DARRYN Walsh MD Jul 17, 2020 07:56
--- NOTE | 2020-07-17 08:16 | PDOC ---
[employer] PROGRESS NOTE Date of Service DOS: DATE: 07/17/20 TIME: 08:13 Chief Complaint Chief Complaint Sepsis Cellulitis Hypothyroidism Plan: Patient seen vancomycin and Zosyn in the ED. Will continue broad-spectrum antibiotic coverage. Skin has been marked with surgical pen in ED, and erythema does not extend beyond the boundaries. Some soft tissue edema/phlegmon noted on physical exam. No crepitus on physical exam. No evidence of necrotizing fasciitis or abscess seen on CT abdomen pelvis. Slight hyperthyroidism. Will resume home levothyroxine at decreased dose; recommend recheck 6-8 weeks. History of Present Illness History of Present Illness Patient is a 35-year-old female with past medical history of hypothyroidism, who presents to the ER with complaints of left hip rash first noted yesterday morning. She reports associated headache, subjective fever, and chills. She has taken ibuprofen for her symptoms without improvement. She does report seeing black spider around her house, and but denies ever seeing spiders on her person. She denies any drainage. Upon evaluation in the ER she had a low-grade fever and slightly tachycardic. WBC 11.1, CRP 52, TSH 0.310. She received broad-spectrum antibiotics and IV fluids. Will admit patient for further medical management. 07/16: Patient seen and evaluated. Cellulitis appears transferred beyond anterior border that was marked on admission. She also notes associated pain. CT abd/pel obtained on admission did not show fluid collection. Will reevaluate with ultrasound. Continue with IV antibiotics and antiviral. 07/17: Afebrile. Normal WBC, elevated CRP. Ultrasound obtained yesterday showing subcutaneous edema, no fluid collection. Patient states she feels well. Pain, swelling, and erythema improved. Will discharge patient on oral Keflex. Greater than 30 minutes was spent managing discharge this patient. Vitals/I&O Vitals/I&O: Vital Signs Date Time Temp Pulse Resp B/P (MAP) Pulse Ox O2 Delivery O2 Flow Rate FiO2 07/17/20 07:41 Room Air 07/17/20 03:22 98.9 75 18 115/68 (84) 97 98.9 I & O 07/16/20 07/16/20 07/17/20 15:00 23:00 07:00 Intake Total 780 ml Balance 780 ml Physical Exam Physical Exam: GENERAL: Alert, oriented female, not in distress. VITAL SIGNS: Stable HEENT: NAD. NECK: Supple, no JVP, no lymphadenopathy. LUNGS: Clear. HEART: S1, S2 regular. ABDOMEN: Soft and nontender. No organomegaly. EXTREMITIES: No edema or cyanosis. SKIN: Unremarkable except left gluteal area. She has got redness into the dermatomal distribution, although there is no blister. There is one area of scab into the lower lumbar area onto the left side. NEUROLOGIC: The patient is alert, awake and appropriate. No focal neurologic deficit. General: Alert, Oriented X3, No acute distress Heart: Regular rate Lungs: Clear Abdomen: Soft, No tenderness Extremities: No clubbing, No cyanosis Skin: Other (Cellulitis to the left hip and left lower back. Resolving soft tissue edema.) Labs Labs: Laboratory Tests Test 07/17/20 05:00 White Blood Count 5.5 x10^3/uL (4.0-11.0) Red Blood Count 4.62 x10^6/uL (3.50-5.40) Hemoglobin 12.6 g/dL (12.0-15.5) Hematocrit 38.6 % (36.0-47.0) Mean Corpuscular Volume 84 fL (79-100) Mean Corpuscular Hemoglobin 27 pg (25-35) Mean Corpuscular Hemoglobin Concent 33 g/dL (31-37) Red Cell Distribution Width 14.4 % (11.5-14.5) Platelet Count 168 x10^3/uL (140-400) Neutrophils (%) (Auto) 68 % (31-73) Lymphocytes (%) (Auto) 20 % (24-48) Monocytes (%) (Auto) 8 % (0-9) Eosinophils (%) (Auto) 3 % (0-3) Basophils (%) (Auto) 1 % (0-3) Neutrophils # (Auto) 3.7 x10^3/uL (1.8-7.7) Lymphocytes # (Auto) 1.1 x10^3/uL (1.0-4.8) Monocytes # (Auto) 0.4 x10^3/uL (0.0-1.1) Eosinophils # (Auto) 0.2 x10^3/uL (0.0-0.7) Basophils # (Auto) 0.0 x10^3/uL (0.0-0.2) C-Reactive Protein, Quantitative 73.4 mg/L (0-3.3) Comment Review of Relevant I have reviewed the following items marisela (where applicable) has been applied. Justifications for Admission Other Justification Cellulitis STEVAN VELASQUEZ MD Jul 17, 2020 08:16
[2020-07-17] MEDS: LACTOBACILLUS RHAMNOSUS GG 1 CAPSULE. PO SCH (09:03)
[2020-07-17] MEDS: VANCOMYCIN 1.25 GM in IV NORMAL SALINE 250ML 250 ML IV SCH (09:03)
[2020-07-17] MEDS: valACYclovir 500 MG TABLET. PO SCH (09:03)
[2020-07-17] MEDS: cefTRIAXone IV Push 1 GM VIAL. IVP SCH (09:03)
--- NOTE | 2020-07-17 09:27 | NUR ---
SW following. Discussed with RN, pt from home with , room air, regular diet. IV abx switched to oral abx. Plans for pt to discharge home with self care today. RN advised no SW needs. SW will continue to follow.
--- NOTE | 2020-07-17 09:51 | PDOC3 ---
Discharge Summary Visit Information Date of Admission: Jul 15, 2020 Date of Discharge: Jul 17, 2020 Brief Hospital Course Allergies Allergies Coded Allergies Type Severity Reaction Last Updated Verified No Known Drug Allergies 03/14/17 No Vital Signs Vital Signs Date Time Temp Pulse Resp B/P (MAP) Pulse Ox O2 Delivery O2 Flow Rate FiO2 07/17/20 07:41 Room Air 07/17/20 07:00 98.4 58 16 102/47 (65) 96 98.4 Lab Results Laboratory Tests Test 07/15/20 23:59 07/16/20 06:50 07/16/20 07:52 07/17/20 05:00 Vancomycin Level Trough 13.4 mcg/mL (10.0-20.0) Vancomycin Last Dose Date Vancomycin Last Dose Time White Blood Count 5.3 x10^3/uL (4.0-11.0) 5.5 x10^3/uL (4.0-11.0) Red Blood Count 4.43 x10^6/uL (3.50-5.40) 4.62 x10^6/uL (3.50-5.40) Hemoglobin 12.2 g/dL (12.0-15.5) 12.6 g/dL (12.0-15.5) Hematocrit 36.8 % (36.0-47.0) 38.6 % (36.0-47.0) Mean Corpuscular Volume 83 fL (79-100) 84 fL (79-100) Mean Corpuscular Hemoglobin 27 pg (25-35) 27 pg (25-35) Mean Corpuscular Hemoglobin Concent 33 g/dL (31-37) 33 g/dL (31-37) Red Cell Distribution Width 14.5 % (11.5-14.5) 14.4 % (11.5-14.5) Platelet Count 158 x10^3/uL (140-400) 168 x10^3/uL (140-400) Neutrophils (%) (Auto) 77 % (31-73) 68 % (31-73) Lymphocytes (%) (Auto) 15 % (24-48) 20 % (24-48) Monocytes (%) (Auto) 7 % (0-9) 8 % (0-9) Eosinophils (%) (Auto) 1 % (0-3) 3 % (0-3) Basophils (%) (Auto) 1 % (0-3) 1 % (0-3) Neutrophils # (Auto) 4.1 x10^3/uL (1.8-7.7) 3.7 x10^3/uL (1.8-7.7) Lymphocytes # (Auto) 0.8 x10^3/uL (1.0-4.8) 1.1 x10^3/uL (1.0-4.8) Monocytes # (Auto) 0.4 x10^3/uL (0.0-1.1) 0.4 x10^3/uL (0.0-1.1) Eosinophils # (Auto) 0.1 x10^3/uL (0.0-0.7) 0.2 x10^3/uL (0.0-0.7) Basophils # (Auto) 0.0 x10^3/uL (0.0-0.2) 0.0 x10^3/uL (0.0-0.2) Sodium Level 138 mmol/L (136-145) Potassium Level 3.2 mmol/L (3.5-5.1) Chloride Level 105 mmol/L (98-107) Carbon Dioxide Level 24 mmol/L (21-32) Anion Gap 9 (6-14) Blood Urea Nitrogen 2 mg/dL (7-20) Creatinine 0.7 mg/dL (0.6-1.0) Estimated GFR (Cockcroft-Gault) 95.2 Glucose Level 92 mg/dL (70-99) Calcium Level 8.1 mg/dL (8.5-10.1) Glucose (Fingerstick) 75 mg/dL (70-99) C-Reactive Protein, Quantitative 73.4 mg/L (0-3.3) Test 07/17/20 05:20 Procalcitonin < 0.10 ng/mL (0.00-0.10) Laboratory Tests Test 07/17/20 05:00 07/17/20 05:20 White Blood Count 5.5 x10^3/uL (4.0-11.0) Red Blood Count 4.62 x10^6/uL (3.50-5.40) Hemoglobin 12.6 g/dL (12.0-15.5) Hematocrit 38.6 % (36.0-47.0) Mean Corpuscular Volume 84 fL (79-100) Mean Corpuscular Hemoglobin 27 pg (25-35) Mean Corpuscular Hemoglobin Concent 33 g/dL (31-37) Red Cell Distribution Width 14.4 % (11.5-14.5) Platelet Count 168 x10^3/uL (140-400) Neutrophils (%) (Auto) 68 % (31-73) Lymphocytes (%) (Auto) 20 % (24-48) Monocytes (%) (Auto) 8 % (0-9) Eosinophils (%) (Auto) 3 % (0-3) Basophils (%) (Auto) 1 % (0-3) Neutrophils # (Auto) 3.7 x10^3/uL (1.8-7.7) Lymphocytes # (Auto) 1.1 x10^3/uL (1.0-4.8) Monocytes # (Auto) 0.4 x10^3/uL (0.0-1.1) Eosinophils # (Auto) 0.2 x10^3/uL (0.0-0.7) Basophils # (Auto) 0.0 x10^3/uL (0.0-0.2) C-Reactive Protein, Quantitative 73.4 mg/L (0-3.3) Procalcitonin < 0.10 ng/mL (0.00-0.10) Brief Hospital Course Ms. Payan is a 35 old female who presented with sepsis due to cellulitis to left hip. She was treated with IV Rocephin and vancomycin. Consultation placed to ID. Due to unusual distribution of cellulitis acyclovir was also added. No abscess or fluid collection identified on CT abdomen pelvis or repeat ultrasound. There was no formation of vesicles to suggest early shingles. Patient improved well, and she was discharged on oral Keflex. Discharge Information Condition at Discharge: Improved Disposition/Orders: D/C to Home Scheduled Levothyroxine Sodium (Levothyroxine Sodium) 112 Mcg Tablet, 112 MCG PO DAILY06 for Hypothyroid, #30 Prescribed by: STEVAN VELASQUEZ MD on 07/17/20 0956 Discontinued Medications Cephalexin (Cephalexin) 500 Mg Capsule, 1 CAP PO QID, #40 Prescribed by: ZOIE MARTIN MD on 12/10/17 0316 Cephalexin (Cephalexin) 500 Mg Tablet, 1 TAB PO TID, #30 Prescribed by: KELVIN COLLINS DO on 07/30/18 1703 Cyclobenzaprine Hcl (Cyclobenzaprine Hcl) 10 Mg Tablet, 10 MG PO TID, #30 Prescribed by: LISSETTE URBINA APRN on 06/08/17 1158 Last Action: HELD on 07/15/20728 by STEVAN VELASQUEZ MD Diphenhydramine Hcl (Benadryl) 25 Mg Capsule, 1 CAP PO Q6HRS, #10 Ref 1 Prescribed by: GREG NEVILLE PA-C on 03/14/17 1222 Last Action: Continued on 07/15/20728 by STEVAN VELASQUEZ MD Hydrocodone/Apap 5-325 ([place] 5-325 Tablet) 1 Each Tablet, 1 TAB PO Q4-6HRS PRN for PAIN, #15 Prescribed by: SIMEON VILLANUEVA on 06/22/16719 Last Action: HELD on 07/15/20728 by STEVAN VELASQUEZ MD Hydrocodone/Apap 5-325 ([place] 5-325 Tablet) 1 Each Tablet, 1 TAB PO PRN Q6HRS PRN for PAIN, #20 Ref 0 Prescribed by: ЕЛЕНА ROBLES APRN on 01/08/181941 Last Action: HELD on 07/15/20728 by STEVAN VELASQUEZ MD Levothyroxine Sodium (Levothyroxine Sodium) 125 Mcg Tablet, 1 TAB PO DAILY for hypothyroid , #30 Ref 5 (Reported) Entered as Reported by: MICHELE ADAN on 07/15/20643 Last Action: HELD on 07/15/20728 by STEVAN VELASQUEZ MD Methylprednisolone (Medrol) 4 Mg Tab.ds.pk, 1 PKG PO UD, #1 Prescribed by: GREG NEVILLE PA-C on 03/14/17 122 Metronidazole (Flagyl) 500 Mg Tablet, 1 TAB PO BID, #14 Prescribed by: LILY PETERSON on 11/30/15 1651 Last Action: HELD on 07/15/20728 by STEVAN VELASQUEZ MD Naproxen (Naprosyn) 500 Mg Tablet, 500 MG PO BID, #20 Prescribed by: LISSETTE URBINA APRN on 06/08/17 1158 Last Action: HELD on 07/15/20728 by STEVAN VELASQUEZ MD Phenazopyridine Hcl (Pyridium) 100 Mg Tablet, 100 MG PO TID, #9 Prescribed by: ЕЛЕНА ROBLES APRN on 05/09/187 Phenazopyridine Hcl (Pyridium) 200 Mg Tablet, 200 MG PO TID for 2 Days, #6 Prescribed by: KELVIN COLLINS DO on 07/30/18 1703 Last Action: HELD on 07/15/20728 by STEVAN VELASQUEZ MD Sulfamethoxazole/Trimethoprim (Bactrim Ds Tablet) 1 Each Tablet, 1 TAB PO BID, #14 Prescribed by: ЕЛЕНА ROBLES APRN on 05/09/182356 Last Action: HELD on 07/15/20728 by STEVAN VELASQUEZ MD Tramadol Hcl (Ultram) 50 Mg Tablet, 50 MG PO Q6H PRN for PAIN, #20 Prescribed by: LILY PETERSON on 11/30/15 1651 Last Action: Continued on 07/15/20728 by STEVAN VELASQUEZ MD Justicifation of Admission Dx: Justifications for Admission: Justification of Admission Dx: Yes (Cellulitis) STEVAN VELASQUEZ MD Jul 17, 2020 09:51
[2020-07-17] MEDS ORDERED: LEVO112T49 PO (09:56)
[2020-07-17 11:00] VITALS: BP 112/40
--- NOTE | 2020-07-17 12:17 | NUR ---
Pt discharged home with self care. Discharge instructions and prescriptions discussed. Pt verbalized understanding. IV removed. Pt ambulated and was secured in car with family.
== END 2020-07-17 12:00 | disposition home or self-care (01) | DRG 872 ==
LOC: ER 22:32 → 4 NORTH 07-15 03:45
PROVIDERS: ADMIT Internal Medicine; ATTEND Internal Medicine
DX: A41.9 Sepsis, unspecified organism (principal); L03.311 Cellulitis of abdominal wall; L03.116 Cellulitis of left lower limb; E03.9 Hypothyroidism, unspecified; B02.9 Zoster without complications
CPT/HCPCS: 36415; 71045; 72170; 72192; 76881; 80048; 80053; 80202; 81001; 81025; 82550; 82962; 83605; 83735; 83874; 84145; 84443; 85007; 85025; 85610; 86140; 87086; 96365; 96366; 96368; 96375; 99285; J0696; J1885; J2543; J3010; J3370; J3490; J7030; J7040; J7050; G0378

== ENCOUNTER 2021-09-27 03:53 | Emergency (ER) | payer OTHER ==
[~2021-09-27] VITALS: Ht 162.6 cm; Wt 86.0 kg
[~2021-09-27 03:53] MED LIST changes: +CYCL10TA19 PO; -CYCL10TA2 PO; +LEVO112T49 PO; +LEVO125T5 PO
[2021-09-27] MEDS ORDERED: ACETAMINOPHEN 500 MG TABLET PO ONE (05:30)
[2021-09-27] MEDS ORDERED: IV NORMAL SALINE 1000ML BAG 1,000 ML IV ONE (05:30)
[2021-09-27] MEDS ORDERED: ONDANSETRON PF 4 MG/2 ML VIAL. IVP ONE (05:30)
[2021-09-27 05:41] LABS: BASO % 1 % (0-3); EOS # 0.3 x10^3/uL (0.0-0.7); EOS % 4 % (0-3); HEMATOCRIT 39.6 % (36.0-47.0); HEMOGLOBIN 13.4 g/dL (12.0-15.5); LYMPH # 1.1 x10^3/uL (1.0-4.8); LYMPH % 15 % (24-48); MEAN CORPUSCULAR HEMOGLOBIN 30 pg (25-35); MEAN CORPUSCULAR HGB CONC 34 g/dL (31-37); MEAN CORPUSCULAR VOLUME 87 fL (79-100); MONO # 0.5 x10^3/uL (0.0-1.1); MONO % 7 % (0-9); NEUT # 5.7 x10^3/uL (1.8-7.7); NEUT % 74 % (31-73); PLATELET COUNT 200 x10^3/uL (140-400); RED BLOOD COUNT 4.55 x10^6/uL (3.50-5.40); WHITE BLOOD COUNT 7.7 x10^3/uL (4.0-11.0)
[2021-09-27 05:53] LABS: CALCIUM 8.1 mg/dL (8.5-10.1); CREATININE 0.8 mg/dL (0.6-1.0); GFR 81.2; POTASSIUM 3.5 mmol/L (3.5-5.1)
--- NOTE | 2021-09-27 05:56 | PHYS DOC ---
Past Medical History Past Medical History: Hypothyroid (ARLEN WEBBER MD) Past Surgical History: No Surgical History (ARLEN WEBBER MD) Smoking Status: Never Smoker Alcohol Use: Occasionally Drug Use: None (ARLEN WEBBER MD) Adult General Chief Complaint Chief Complaint: ABDOMINAL PAIN HPI HPI The patient is a 36-year-old female with a history of cholecystectomy in the past. She presents for evaluation of 3 days of sharp, focal, nonradiating intermittent epigastric discomfort. Discomfort does not radiate and nothing seems to bring it on or make it worse or make it better. Last episode of discomfort was a few minutes prior to arrival. Discomfort is gone now. Associated nausea with a number of episodes of nonbloody vomiting each day over the past 3 days. Associated generalized abdominal distention, mild. No associated fevers, hematemesis, hematochezia or melena, upper respiratory congestion/rhinorrhea, cough, sore throat, shortness of breath or chest pain of any kind, right-sided or lower abdominal pain of any kind, flank pain, midline back pain, dysuria, hematuria, polyuria or oliguria, unusual vaginal discharge or bleeding. Patient notes a few episodes of watery diarrhea at around the time that symptoms had onset 3 days ago. No diarrhea since then. Vital signs are appropriate here and the patient is in no acute distress. (ARLEN WEBBER MD) HPI I evaluated the patient, patient states that her pain is mostly in the upper right area of her abdomen as well as epigastric. She states that she feels very bloated with a lot of gas. She states that she has not had a good bowel movement in a number of days. Patient states that she has not tried any medication for constipation as well as acid in her stomach. She has never been diagnosed with gastritis. She states she is unsure but she believes she had a cholecystectomy in the past. (MATHEUS AGUSTIN MD) Review of Systems Review of Systems A 12 point review of systems was completed and was negative except where noted in HPI above. (ARLEN WEBBER MD) Current Medications Current Medications Current Medications Medications (Trade) Dose Ordered Sig/Lucía Start Time Stop Time Status Last Admin Dose Admin Acetaminophen (Tylenol) 1,000 mg 1X ONCE 09/27/21 05:30 09/27/21 05:31 DC 09/27/21 05:30 1,000 MG Info (CONTRAST GIVEN -- Rx MONITORING) 1 each PRN DAILY PRN 09/27/21 07:00 09/29/21 06:59 Iohexol (Omnipaque 300 Mg/ml) 75 ml 1X ONCE 09/27/21 07:00 09/27/21 07:01 DC 09/27/21 07:12 75 ML Ondansetron HCl (Zofran) 4 mg 1X ONCE 09/27/21 05:30 09/27/21 05:31 DC 09/27/21 05:30 4 MG Pantoprazole Sodium (PROTONIX VIAL for IV PUSH) 40 mg 1X ONCE 09/27/21 08:45 09/27/21 08:46 DC Sodium Chloride 1,000 ml @ 1,000 mls/hr 1X ONCE 09/27/21 05:30 09/27/21 06:29 DC 09/27/21 05:30 1,000 MLS/HR (MATHEUS AGUSTIN MD) Allergies Allergies Allergies Coded Allergies Type Severity Reaction Last Updated Verified No Known Drug Allergies 03/14/17 No (MATHEUS AGUSTIN MD) Physical Exam Physical Exam 36-year-old female appearing nontoxic and in no acute distress. Head is normocephalic and atraumatic. Neck is supple and nontender. Oropharynx is moist. Lungs are clear to auscultation at all stations. There is normal S1 and S2 without rubs or gallops and capillary refill is appropriate, less than 2 seconds globally. Abdomen is soft, nontender and minimally distended. Skin is warm and dry without cyanosis, clubbing or edema. Psychiatrically, the patient demonstrates appropriate mood and affect and is alert. (ARLEN WEBBER MD) Physical Exam VITALS: See Above GENERAL: The patient appears well-developed, well-nourished in no apparent distress. The patient is alert and oriented x4. HEAD: Head is normocephalic and atraumatic. EYES: Extraocular muscles are intact. Pupils are equal, round, and reactive to light and accommodation. Sclera non-icteric. Conjunctivae non-injected. EARS/NOSE/MOUTH/THROAT: External inspection of the ears and nose reveals a normal overall appearance without lesions or scars. Nares are patent. Mouth is well hydrated and without lesions. Mucous membranes are moist. Posterior pharynx clear of any exudate or lesions. NECK: Supple. Trachea Midline. No lymphadenopathy or thyromegaly. LUNGS: Clear to auscultation. No rhonchi. No rales. No crackles. No wheezes. No retractions or increased work of breathing. HEART: Regular rate and rhythm without murmurs, rubs, gallops. Normal S1/S2. Capillary refill less than 2 seconds. ABDOMEN: Soft, +tenderness in RUQ - mild, mildly distended. Positive bowel sounds. No hepatosplenomegaly, no masses, no hernias noted. EXTREMITIES: Without any cyanosis, clubbing, rash, lesions or edema. NEUROLOGIC: CN II-XII grossly intact PSYCHIATRIC: Normal affect, Normal mood. SKIN: Warm and dry. No ulceration or induration noted. (MATHEUS AGUSTIN MD) Current Patient Data Vital Signs Vital Signs Date Time Temp Pulse Resp B/P (MAP) Pulse Ox O2 Delivery O2 Flow Rate FiO2 09/27/21 05:00 98.0 71 18 118/60 (79) 100 Room Air 98.0 (MATHEUS AGUSTIN MD) Lab Values Laboratory Tests Test 09/27/21 05:33 09/27/21 08:00 White Blood Count 7.7 x10^3/uL (4.0-11.0) Red Blood Count 4.55 x10^6/uL (3.50-5.40) Hemoglobin 13.4 g/dL (12.0-15.5) Hematocrit 39.6 % (36.0-47.0) Mean Corpuscular Volume 87 fL (79-100) Mean Corpuscular Hemoglobin 30 pg (25-35) Mean Corpuscular Hemoglobin Concent 34 g/dL (31-37) Red Cell Distribution Width 14.0 % (11.5-14.5) Platelet Count 200 x10^3/uL (140-400) Neutrophils (%) (Auto) 74 % (31-73) H Lymphocytes (%) (Auto) 15 % (24-48) L Monocytes (%) (Auto) 7 % (0-9) Eosinophils (%) (Auto) 4 % (0-3) H Basophils (%) (Auto) 1 % (0-3) Neutrophils # (Auto) 5.7 x10^3/uL (1.8-7.7) Lymphocytes # (Auto) 1.1 x10^3/uL (1.0-4.8) Monocytes # (Auto) 0.5 x10^3/uL (0.0-1.1) Eosinophils # (Auto) 0.3 x10^3/uL (0.0-0.7) Basophils # (Auto) 0.0 x10^3/uL (0.0-0.2) Sodium Level 137 mmol/L (136-145) Potassium Level 3.5 mmol/L (3.5-5.1) Chloride Level 103 mmol/L (98-107) Carbon Dioxide Level 26 mmol/L (21-32) Anion Gap 8 (6-14) Blood Urea Nitrogen 14 mg/dL (7-20) Creatinine 0.8 mg/dL (0.6-1.0) Estimated GFR (Cockcroft-Gault) 81.2 BUN/Creatinine Ratio 18 (6-20) Glucose Level 88 mg/dL (70-99) Calcium Level 8.1 mg/dL (8.5-10.1) L Total Bilirubin 1.0 mg/dL (0.2-1.0) Aspartate Amino Transferase (AST) 20 U/L (15-37) Alanine Aminotransferase (ALT) 37 U/L (14-59) Alkaline Phosphatase 83 U/L (46-116) Total Protein 7.5 g/dL (6.4-8.2) Albumin 3.3 g/dL (3.4-5.0) L Albumin/Globulin Ratio 0.8 (1.0-1.7) L Lipase 99 U/L (73-393) Serum Test, Qualitative Negative (NEG) Urine Collection Type Unknown Urine Color (Auto) Light yellow Urine Turbidity Clear Urine pH (Auto) 7.0 (<5.0-8.0) Urine Specific [place] >1.050 (1.000-1.030) Urine Protein (Auto) Negative mg/dL (Negative) Urine Glucose (Auto)(UA) Negative mg/dL (Negative) Urine Ketones (Auto) Negative mg/dL (Negative) Urine Blood (Auto) Negative (Negative) Urine Nitrite Negative (Negative) Urine Bilirubin (Auto) Negative (Negative) Urine Urobilinogen (Auto) Normal mg/dL (Normal) Urine Leukocyte Esterase (Auto) Small (Negative) Urine RBC 0 /HPF (0-2) Urine WBC Occ /HPF (0-4) Urine Squamous Epithelial Cells Many /LPF Urine Bacteria Few /HPF (0-FEW) Laboratory Tests 09/27/21 05:33 Laboratory Tests 09/27/21 05:33 (MATHEUS AGUSTIN MD) EKG EKG [] (ARLEN WEBBER MD) Radiology/Procedures Radiology/Procedures [] (ARLEN EWBBER MD) Radiology/Procedures PATIENT: ANDERSON IBRAHIMACCOUNT: [id number] : 1985 LOCATION: ER AGE: 36 SEX: F EXAM STATUS: REG ER ORD. PHYSICIAN: MATHEUS AGUSTIN MD REASON: abd pain, epigastric PROCEDURE: CT ABD PELV W/ IV CONTRST ONLY CT abdomen pelvis with contrast dated 09/27/2021. COMPARISON: 07/15/2020. INDICATION: Abdominal pain. TECHNIQUE: Contiguous axial imaging the abdomen pelvis performed after the administration of 75 cc Omnipaque 300. One or more of the following individualized dose reduction techniques were utilized for this examination: 1. Automated exposure control 2. Adjustment of the mA and/or kV according to patient size 3. Use of iterative reconstruction technique2 FINDINGS: Limited images of the lung bases are clear. Heart size upper limits of normal. No pleural or pericardial effusion. Liver, spleen, pancreas, adrenal glands and kidneys are unremarkable. No hydronephrosis. There is cortical scarring at the upper and midpole right kidney. Unopacified GI tract normal in caliber and contour. No focal bowel wall thic kening. No inflammatory changes in the mesentery. The appendix is normal in caliber. No ascites or lymphadenopathy. Images of pelvis show nondistended urinary bladder. Intrauterine contraceptive device appears to be adequately positioned in the endometrial canal. No free fluid or lymphadenopathy. There are a few nonpathologic enlarged lymph nodes in the left inguinal region, nonspecific but unchanged. Bone window show no acute finding. Multilevel spondylosis. IMPRESSION: 1. No acute abnormality of abdomen or pelvis. Normal appendix. 2. Cortical scarring at the upper to midpole right kidney. 3. Status post cholecystectomy. Electronically signed by: Heron Parada MD (09/27/2021 7:26 AM) [facility] Imp[facility]: 36-year-old female with gastritis and constipation (MATHEUS AGUSTIN MD) Course & Med Decision Making Course & Med Decision Making Will place IV and give IV fluids and medication for nausea and discomfort as noted and will check labs and urine and will then reevaluate. Most likely will benefit from CT imaging for disposition. 0600: Transition of care to Dr. Agustin pending labs, urine and further testing as indicated, then reevaluation for disposition. (ARLEN WEBBER MD) Course & Med Decision Making Patient reevaluated by myself, patient doing well. Minimal abdominal pain. Patient states that she is mostly bloated, less pain than bloating. Patient has not been using any medication for gastritis as well as constipation. Patient was referred back to her primary care physician, patient stated that she would follow-up. Given a prescription for PPI as well as recommendation to use MiraLAX 1-2 times daily. She was given 1 dose of IV Protonix prior to discharge. Patient comfortable with discharge. Patient stable at the time of discharge. All questions answered. (MATHEUS AGUSTIN MD) Dragon Disclaimer Dragon Disclaimer This electronic medical record was generated, in whole or in part, using a voice recognition dictation system. (ARLEN WEBBER MD) Departure Departure Impression: Primary Impression: Acute epigastric pain Additional Impression: Acute vomiting Condition: STABLE Referrals: NO PCP (PCP) Scripts Omeprazole (OMEPRAZOLE) 20 Mg Capsule.dr 1 CAP PO DAILY, #30 CAP 5 Refills Prov: MATHEUS AGUSTIN MD 09/27/21 Problem Qualifiers ARLEN WEBBER MD Sep 27, 2021 05:56 MATHEUS AGUSTIN MD Sep 27, 2021 09:02
[2021-09-27 05:59] LABS: ALBUMIN 3.3 g/dL (3.4-5.0); ALBUMIN/GLOBULIN RATIO 0.8 (1.0-1.7); TOTAL PROTEIN 7.5 g/dL (6.4-8.2)
[2021-09-27 06:07] LABS: PREG TEST PT QUAL NEGATIVE (NEG)
[2021-09-27] MEDS ORDERED: CONTRAST GIVEN. MC PRN (07:00)
[2021-09-27] MEDS ORDERED: IOHEXOL 300 MG/ML 100ML VIAL. IV ONE (07:00)
--- NOTE | 2021-09-27 07:28 | RAD ---
CT abdomen pelvis with contrast dated 09/27/2021. COMPARISON: 07/15/2020. INDICATION: Abdominal pain. TECHNIQUE: Contiguous axial imaging the abdomen pelvis performed after the administration of 75 cc Omnipaque 300 . One or more of the following individualized dose reduction techniques were utilized for this examinat ion: 1. Automated exposure control 2. Adjustment of the mA and/or kV according to patient size 3. Use of iterative reconstruction technique2 FINDINGS: Limited images of the lung bases are clear. Heart size upper limits of normal. No pleural or pericard ial effusion. Liver, spleen, pancreas, adrenal glands and kidneys are unremarkable. No hydronephrosis. There is cor tical scarring at the upper and midpole right kidney. Unopacified GI tract normal in caliber and contour. No focal bowel wall thickening. No inflammatory c hanges in the mesentery. The appendix is normal in caliber. No ascites or lymphadenopathy. Images of pelvis show nondistended urinary bladder. Intrauterine contraceptive device appears to be a dequately positioned in the endometrial canal. No free fluid or lymphadenopathy. There are a few nonp athologic enlarged lymph nodes in the left inguinal region, nonspecific but unchanged. Bone window show no acute finding. Multilevel spondylosis. IMPRESSION: 1. No acute abnormality of abdomen or pelvis. Normal appendix. 2. Cortical scarring at the upper to midpole right kidney. 3. Status post cholecystectomy. Electronically signed by: Heron Parada MD (09/27/2021 7:26 AM) [facility]
[2021-09-27 08:26] LABS: BACTERIA,URINE FEW /HPF (0-FEW); RBC,URINE 0 /HPF (0-2); WBC,URINE OCC /HPF (0-4)
[2021-09-27] MEDS ORDERED: OMEP20CA16 PO (08:40)
[2021-09-27] MEDS ORDERED: PANTOPRAZOLE IV PUSH 40 MG VIAL. IVP ONE (08:45)
[2021-09-27 08:56] VITALS: BP 108/64
== END 2021-09-27 09:09 | disposition home or self-care (01) ==
LOC: ER 03:53
DX: R10.13 Epigastric pain (principal); R11.2 Nausea with vomiting, unspecified; R19.7 Diarrhea, unspecified; E03.9 Hypothyroidism, unspecified
CPT/HCPCS: 36415; 74177; 80053; 81001; 83690; 84703; 85025; 87077; 87086; 87186; 96361; 96374; 96375; 99285; C9113; J2405; J7030; Q9967